=== PATIENT | female | born 1935 | race Caucasian/White ===

== ENCOUNTER → 2016-11-24 | Outpatient (CLI) | payer MEDICARE, BC ==
[2016-11-24 13:24] LABS: CHLORIDE,CL 103 mmol/L (98-110); SODIUM,NA 138 mmol/L (136-146)
== END ==
LOC: MW.CHFP 12:21
PROVIDERS: ATTEND Nurse Practitioner Family
DX: I10 Essential (primary) hypertension (principal); N18.4 Chronic kidney disease, stage 4 (severe); F03.90 Unspecified dementia, unspecified severity, without behavioral disturbance, psychotic disturbance, mood disturbance, and anxiety; Z86.718 Personal history of other venous thrombosis and embolism
CPT/HCPCS: 36415; 80053; 80061; 99214

== ENCOUNTER 2018-06-17 23:27 | Observation (INO) | payer MEDICARE, BC ==
--- NOTE | 2018-06-17 23:51 | EDM.PDOC ---
ED HPI GENERAL MEDICAL PROBLEM - General Chief Complaint: Head Injury Stated Complaint: PT FELL AND HURT HEAD Time Seen by Provider: 06/17/18 23:47 - History of Present Illness INITIAL COMMENTS - FREE TEXT/NARRATIVE: HISTORY AND PHYSICAL: History of present illness: Patient is an 83-year-old white female presents status post fall which she hit her head on dresser she states she tripped over her own feet and it was dark in the room this was authenticated by her family was with her she had no loss consciousness she denies any neck pain she denies any chest pain dizziness palpitations shortness of breath or any other concerns she denies any other trauma and on arrival here apart from a small scalp hematoma in her left parietal region she is without complaints Review of systems: As per history of present illness and below otherwise all systems reviewed and negative. Past medical history: As per history of present illness and as reviewed below otherwise noncontributory. Surgical history: As per history of present illness and as reviewed below otherwise noncontributory. Social history: No reported history of drug or alcohol abuse. Family history: As per history of present illness and as reviewed below otherwise noncontributory. Physical exam: HEENT: Patient has a small approximately 1-2 cm scalp hematoma in the left parietal region no step-off no depression, normocephalic, pupils reactive, negative for conjunctival pallor or scleral icterus, mucous membranes moist, throat clear, neck supple, nontender, trachea midline. Lungs: Clear to auscultation, breath sounds equal bilaterally, chest nontender. Heart: S1S2, irregularly irregular tachycardic negative for clicks, rubs, or JVD. Abdomen: Soft, nondistended, nontender. Negative for masses or hepatosplenomegaly. Negative for costovertebral tenderness. Pelvis: Stable nontender. Genitourinary: Deferred. Rectal: Deferred. Extremities: Atraumatic, negative for cords or calf pain. Neurovascular unremarkable. Neuro: Awake, alert, oriented. Cranial nerves II through XII unremarkable. Cerebellum unremarkable. Motor and sensory unremarkable throughout. Exam nonfocal. Diagnostics: CBC CMP PT/INR troponin chest x-ray EKG CT brain Therapeutics: None Impression: #1 observation status post fall #2 head trauma with scalp hematoma #3 new onset atrial fibrillation with rapid ventricular response Definitive disposition and diagnosis as appropriate pending reevaluation and review of above. - Related Data Allergies Allergy/AdvReac Type Severity Reaction Status Date / Time No Known Allergies Allergy Verified 06/18/18 11:26 Home Meds: Home Meds Apixaban [Eliquis] 2.5 mg PO BID 06/17/18 [History] Potassium Chloride 10 meq PO TID 06/17/18 [History] Rosuvastatin [Crestor] 10 mg PO DAILY 06/17/18 [History] Triamterene/Hydrochlorothiazid [Triamterene-HCTZ 37.5-25 MG] 1 each PO DAILY [History] amLODIPine Besylate [Amlodipine Besylate] 10 mg PO DAILY 06/17/18 [History] Past Medical History Cardiovascular History: Reports: High Cholesterol, Hypertension Other Cardiovascular History: Pt states "she has hx of mitral valve problems but no replacement." [employer] History: Reports: Neurological History: Reports: Other (See Below) Other Neuro History: dementia Hematologic History: Reports: Other (See Below) Other Hematologic History: Hx of thrombosis Social & Family History - Family History Family Medical History: Noncontributory - Tobacco Use Smoking Status *Q: Never Smoker Second Hand Smoke Exposure: No - Caffeine Use Caffeine Use: Reports: Coffee - Recreational Drug Use Recreational Drug Use: No ED ROS GENERAL - Review of Systems Review Of Systems: ROS reveals no pertinent complaints other than HPI. ED EXAM, GENERAL - Physical Exam Exam: See Below (The dictation) Course - Vital Signs Last Recorded V/S: Last Vital Signs Temp 37.4 C 06/19/18 07:36 Pulse 110 H 06/19/18 07:36 Resp 16 06/19/18 07:36 BP 133/86 06/19/18 07:36 Pulse Ox 93 L 06/19/18 07:36 - Orders/Labs/Meds Orders: Active Orders 24 hr Category Date Time Status CULTURE URINE [RM] Stat Lab 06/18/18 07:14 Received Medication Orders Acetaminophen (Tylenol) 650 mg PO Q4H PRN PRN Reason: Pain (Mild 1-3)/fever Amlodipine Besylate (Norvasc) 10 mg PO DAILY [facility] Last Admin: 06/18/18 12:25 Dose: 10 mg Sodium Chloride (Normal Saline) 1,000 mls @ 100 mls/hr IV ASDIRECTED [facility] Last Admin: 06/18/18 23:26 Dose: 100 mls/hr Infusion: 06/18/18 22:24 Dose: 100 mls/hr Admin: 06/18/18 12:24 Dose: 100 mls/hr Ceftriaxone Sodium 1 gm/ (Sodium Chloride) 50 mls @ 100 mls/hr IV Q24H [facility] Last Admin: 06/18/18 12:24 Dose: 100 mls/hr Metoprolol Tartrate (Lopressor) 25 mg PO Q12H [facility] Last Admin: 06/18/18 23:22 Dose: 25 mg Admin: 06/18/18 12:25 Dose: 25 mg Ondansetron HCl (Zofran Odt) 4 mg PO Q4H PRN PRN Reason: nausea, able to take PO Potassium Chloride (Klor-Con M20) 40 meq PO ONETIME ONE Last Admin: 06/18/18 14:54 Dose: 40 meq Labs: Laboratory Tests 06/17/18 06/17/18 06/17/18 Range/Units 23:25 23:55 23:55 WBC 7.47 (4.0-11.0) K/uL RBC 5.42 (4.30-5.90) M/uL Hgb 15.5 (12.0-16.0) g/dL Hct 44.5 (36.0-46.0) % MCV 82.1 (80.0-98.0) fL MCH 28.6 (27.0-32.0) pg MCHC 34.8 (31.0-37.0) g/dL RDW Std Deviation 43.2 (28.0-62.0) fl RDW Coeff of Mary 15 (11.0-15.0) % Plt Count 188 (150-400) K/uL MPV 10.70 (7.40-12.00) fL Neut % (Auto) 57.0 (48.0-80.0) % Lymph % (Auto) 30.1 (16.0-40.0) % [place] % (Auto) 10.0 (0.0-15.0) % Eos % (Auto) 2.5 (0.0-7.0) % Baso % (Auto) 0.4 (0.0-1.5) % Neut # (Auto) 4.3 (1.4-5.7) K/uL Lymph # (Auto) 2.3 (0.6-2.4) K/uL Pitkin # (Auto) 0.8 (0.0-0.8) K/uL Eos # (Auto) 0.2 (0.0-0.7) K/uL Baso # (Auto) 0.0 (0.0-0.1) K/uL Nucleated RBC % 0.0 /100WBC Nucleated RBCs # 0 K/uL INR 0.98 Sodium (136-145) mmol/L Potassium (3.5-5.1) mmol/L Chloride (98-107) mmol/L Carbon Dioxide (21.0-32.0) mmol/L BUN (7.0-18.0) mg/dL Creatinine (0.6-1.0) mg/dL Est Cr Clr Drug Dosing mL/min Estimated GFR (MDRD) ml/min Glucose (74-106) mg/dL Calcium (8.5-10.1) mg/dL Total Bilirubin (0.2-1.0) mg/dL AST (15-37) IU/L ALT (14-63) IU/L Alkaline Phosphatase (46-116) U/L Troponin I (0.000-0.056) ng/mL Total Protein (6.4-8.2) g/dL Albumin (3.4-5.0) g/dL Globulin (2.0-3.5) g/dL Albumin/Globulin Ratio (1.3-2.8) Urine Color YELLOW Urine Appearance SLT CLOUDY Urine pH 6.0 (5.0-8.0) Ur Specific [place] >= 1.030 (1.001-1.035) Urine Protein 100 (NEGATIVE) mg/dL Urine Glucose (UA) NEGATIVE (NEGATIVE) mg/dL Urine Ketones NEGATIVE (NEGATIVE) mg/dL Urine Occult Blood SMALL H (NEGATIVE) Urine Nitrite POSITIVE H (NEGATIVE) Urine Bilirubin NEGATIVE (NEGATIVE) Urine Urobilinogen 0.2 (<2.0) EU/dL Ur Leukocyte Esterase NEGATIVE (NEGATIVE) Urine RBC 1-3 (0-2/HPF) Urine WBC 20-25 (0-5/HPF) Ur Epithelial Cells FEW (NONE-FEW) Urine Bacteria 2+ H (NEGATIVE) 06/17/18 Range/Units 23:55 WBC (4.0-11.0) K/uL RBC (4.30-5.90) M/uL Hgb (12.0-16.0) g/dL Hct (36.0-46.0) % MCV (80.0-98.0) fL MCH (27.0-32.0) pg MCHC (31.0-37.0) g/dL RDW Std Deviation (28.0-62.0) fl RDW Coeff of Mary (11.0-15.0) % Plt Count (150-400) K/uL MPV (7.40-12.00) fL Neut % (Auto) (48.0-80.0) % Lymph % (Auto) (16.0-40.0) % [place] % (Auto) (0.0-15.0) % Eos % (Auto) (0.0-7.0) % Baso % (Auto) (0.0-1.5) % Neut # (Auto) (1.4-5.7) K/uL Lymph # (Auto) (0.6-2.4) K/uL [place]kin # (Auto) (0.0-0.8) K/uL Eos # (Auto) (0.0-0.7) K/uL Baso # (Auto) (0.0-0.1) K/uL Nucleated RBC % /100WBC Nucleated RBCs # K/uL INR Sodium 138 (136-145) mmol/L Potassium 3.4 L (3.5-5.1) mmol/L Chloride 102 (98-107) mmol/L Carbon Dioxide 22.2 (21.0-32.0) mmol/L BUN 27 H (7.0-18.0) mg/dL Creatinine 1.8 H (0.6-1.0) mg/dL Est Cr Clr Drug Dosing 22.22 mL/min Estimated GFR (MDRD) 26.7 ml/min Glucose 129 H (74-106) mg/dL Calcium 9.6 (8.5-10.1) mg/dL Total Bilirubin 0.6 (0.2-1.0) mg/dL AST 19 (15-37) IU/L ALT 18 (14-63) IU/L Alkaline Phosphatase 82 (46-116) U/L Troponin I < 0.050 (0.000-0.056) ng/mL Total Protein 7.7 (6.4-8.2) g/dL Albumin 3.8 (3.4-5.0) g/dL Globulin 3.9 H (2.0-3.5) g/dL Albumin/Globulin Ratio 1.0 L (1.3-2.8) Urine Color Urine Appearance Urine pH (5.0-8.0) Ur Specific [place] (1.001-1.035) Urine Protein (NEGATIVE) mg/dL Urine Glucose (UA) (NEGATIVE) mg/dL Urine Ketones (NEGATIVE) mg/dL Urine Occult Blood (NEGATIVE) Urine Nitrite (NEGATIVE) Urine Bilirubin (NEGATIVE) Urine Urobilinogen (<2.0) EU/dL Ur Leukocyte Esterase (NEGATIVE) Urine RBC (0-2/HPF) Urine WBC (0-5/HPF) Ur Epithelial Cells (NONE-FEW) Urine Bacteria (NEGATIVE) Meds: Medications Generic Name Dose Route Start Last Admin Trade Name Freq PRN Reason Stop Dose Admin Acetaminophen 650 mg 06/18/18 11:51 Tylenol PO Q4H PRN Pain (Mild 1-3)/fever Amlodipine Besylate 10 mg 06/18/18 12:00 06/18/18 12:25 Norvasc PO 10 mg DAILY [facility] Administration Sodium Chloride 1,000 mls @ 100 mls/hr 06/18/18 12:00 06/18/18 23:26 Normal Saline IV 100 mls/hr ASDIRECTED ENRICO Administration Ceftriaxone Sodium 1 gm/ 50 mls @ 100 mls/hr 06/18/18 12:15 06/18/18 12:24 Sodium Chloride IV 100 mls/hr Q24H [facility] Administration Metoprolol Tartrate 25 mg 06/18/18 12:15 06/18/18 23:22 Lopressor PO 25 mg Q12H [facility] Administration Ondansetron HCl 4 mg 06/18/18 11:51 Zofran Odt PO Q4H PRN nausea, able to take PO Potassium Chloride 40 meq 06/18/18 13:18 06/18/18 14:54 Klor-Con M20 PO 40 meq ONETIME ONE Administration Discontinued Medications Generic Name Dose Route Start Last Admin Trade Name Freq PRN Reason Stop Dose Admin Diltiazem HCl 25 mg 06/18/18 01:37 06/18/18 01:57 Diltiazem IVPUSH 06/18/18 01:38 25 mg ONETIME ONE Administration Diltiazem HCl 20 mg 06/18/18 09:29 06/18/18 09:51 Diltiazem IVPUSH 06/18/18 09:30 20 mg ONETIME ONE Administration Sodium Chloride 1,000 mls @ 999 mls/hr 06/18/18 01:37 06/18/18 09:45 Normal Saline IV 06/18/18 02:37 Infused .Bolus ONE Infusion Ceftriaxone Sodium/Dextrose 1 50 mls @ 100 mls/hr 06/18/18 07:14 06/18/18 07: 31 gm/ Premix IV 06/18/18 07:43 100 mls/hr ONETIME ONE Administration Magnesium Sulfate 2 gm/ Premix 50 mls @ 50 mls/hr 06/18/18 19:57 06/18/18 20: 18 IV 06/18/18 20:56 50 mls/hr ONETIME ONE Administration Metoprolol Tartrate Confirm 06/18/18 12:16 06/18/18 12:30 Lopressor Administered 06/18/18 12:17 Not Given Dose 25 mg .ROUTE .STK-MED ONE Ondansetron HCl 8 mg 06/18/18 09:46 06/18/18 09:50 Zofran IVPUSH 06/18/18 09:47 8 mg ONETIME ONE Administration Ondansetron HCl Confirm 06/18/18 09:47 06/18/18 09:59 Zofran Administered 06/18/18 09:48 Not Given Dose 8 mg .ROUTE .STK-MED ONE Departure - Departure Time of Disposition: 08:13 Disposition: Refer to Observation Condition: Good Clinical Impression: Atrial fibrillation - Discharge Information - My Orders Last 24 Hours: My Active Orders 06/18/18 07:14 CULTURE URINE [RM] Stat - Assessment/Plan Last 24 Hours: My Active Orders 06/18/18 07:14 CULTURE URINE [RM] Stat
[2018-06-18 00:43] LABS: CHLORIDE,CL 102 mmol/L (98-107); SODIUM,NA 138 mmol/L (136-145)
[2018-06-18] MEDS ORDERED: Diltiazem 25 MG/5 ML SDV IVPUSH ONE ×2 (01:37→09:29)
[2018-06-18] MEDS ORDERED: Sodium Chloride 0.9% 1,000 ML IV ONE (01:37)
[2018-06-18] MEDS ORDERED: cefTRIAXone 1 GM in Premix Bag 1 BAG IV ONE (07:14)
[2018-06-18] MEDS ORDERED: Ondansetron 4 MG/2 ML SDV IVPUSH ONE (09:46)
[2018-06-18] MEDS ORDERED: Ondansetron 4 MG/2 ML SDV ONE (09:47)
--- NOTE | 2018-06-18 11:10 | CT ---
EXAM DATE: 06/18/18 PATIENT'S AGE: 83 Patient: MIGUELANGEL GONG Facility: [place], [place] Site . Site : 1935 Study: CT Head [id number]/24/2018 11:43:00 PM Ordering Physician: Doctor eHaly Final Report: INDICATION: Fall, On Blood Thinners, Head Trauma TECHNIQUE: CT Head without i.v. contrast. CONTRAST: None COMPARISON: 09/25/2015 FINDINGS: CSF space: Unremarkable for age. Brain: No evidence of mass, acute infarction or hemorrhage is seen. No mass- effect or midline shift is seen. Mild diffuse cortical atrophy is noted. The brain parenchyma is otherwise normal in appearance with preservation of the lagos -white matter junction. Calvarium: Partial opacification of the right sphenoind sinus noted. The visualized paranasal sinuses are otherwise well aerated. The mastoid air cells are clear. The visualized orbits are grossly unremarkable. The calvarium is unremarkable in appearance with no fractures identified. IMPRESSION: 1. No evidence of acute infarction, intracranial hemorrhage, or mass-effect seen. Please note that all CT scans at this facility use dose modulation, iterative reconstruction, and/or weight-based dosing when appropriate to reduce radiation dose to as low as reasonably achievable. Dictated by: Christian Gottlieb MD @ 06/17/2018 23:52:45 (Electronic Signature) Report Signed by Proxy. [facility]
--- NOTE | 2018-06-18 11:11 | CR ---
EXAM DATE: 06/18/18 PATIENT'S AGE: 83 Patient: MIGUELANGEL GONG Facility: [place], [place] Site . Site : 1935 Study: XRay Chest [id number]/24/2018 11:46:30 PM Ordering Physician: Doctor Healy Final Report: INDICATION: Fall, On Blood Thinners, chest injury TECHNIQUE: Chest radiograph 1 view COMPARISON: 09/25/2015 FINDINGS: Mediastinum: Large gastric hernia with air-fluid levels present without interval change. The heart silhouette is normal in size and morphology. Lung: Both lungs are unremarkable in appearance. The left lateral costophrenic sulcus is excluded. No pneumothorax is identified. Musculoskeletal: Unremarkable for age. IMPRESSION: 1. No acute cardiopulmonary disease is seen. Dictated by Christian Gottlieb MD @ 06/17/2018 11:54:29 PM Dictated by: Christian Gottlieb MD @ 06/17/2018 23:54:33 (Electronic Signature) Report Signed by Proxy. HUNG
[2018-06-18] MEDS ORDERED: Ondansetron 4 MG Tab.DIS PO PRN (11:51)
[2018-06-18] MEDS ORDERED: Acetaminophen 325 MG Tab PO PRN (11:51)
[2018-06-18] MEDS ORDERED: Metoprolol Tartrate 25 MG Tab ONE (12:16)
[2018-06-18] MEDS: cefTRIAXone 1 GM in Sodium Chloride 0.9% 50 ML IV SCH (12:24)
[2018-06-18] MEDS: Sodium Chloride 0.9% 1,000 ML IV SCH ×2 (12:24→23:26)
[2018-06-18] MEDS: Metoprolol Tartrate 25 MG Tab PO SCH ×2 (12:25→23:22)
[2018-06-18] MEDS: amLODIPine 5 MG Tab PO SCH (12:25)
--- NOTE | 2018-06-18 13:26 | PCM.HP ---
<Mookie QuirosandaGarrett - Last Filed: 06/18/18 13:21> H&P History of Present Illness - General Date of Service: 06/18/18 Admit Problem/Dx: Admission Diagnosis/Problem Admission Diagnosis/Problem Afib, Atrial fibrillation - History of Present Illness Initial Comments - Free Text/Narative: Tanya Lambert is an 83 y/o female with history of Afib on Eliquis who presented to the ER after she had a fall at home. History if obtained from her nephew and patient. Patient states that she was in room walking when she suddenly fell and hit her head on left side against a dresser. She denies any presyncopal symptoms. No history of seizures. In the ER, patient was found to be in Afib with RVR. She received diltiazem which seemed to control her heart rate. In addition, a Head CT was performed and it did not show any intracranial bleed. Patient states that she is able to take care of herself at home. Able to ambulate on her own. Denies any chest pain, dyspnea. No abdominal pain, dysuria or diarrhea. She is alert and oriented x3. Per family , she is at her baseline. Of note, UA performed is positive for UTI. ID and susceptibilities pending. - Related Data Allergies/Adverse Reactions: Allergies Allergy/AdvReac Type Severity Reaction Status Date / Time No Known Allergies Allergy Verified 06/18/18 11:26 Home Medications: Home Meds Apixaban [Eliquis] 2.5 mg PO BID 06/17/18 [History] Potassium Chloride 10 meq PO TID 06/17/18 [History] Rosuvastatin [Crestor] 10 mg PO DAILY 06/17/18 [History] Triamterene/Hydrochlorothiazid [Triamterene-HCTZ 37.5-25 MG] 1 each PO DAILY [History] amLODIPine Besylate [Amlodipine Besylate] 10 mg PO DAILY 06/17/18 [History] Past Medical History Cardiovascular History: Reports: High Cholesterol, Hypertension Other Cardiovascular History: Pt states "she has hx of mitral valve problems but no replacement." [employer] History: Reports: Neurological History: Reports: Other (See Below) Other Neuro History: dementia Hematologic History: Reports: Other (See Below) Other Hematologic History: Hx of thrombosis (R) arm Social & Family History - Family History Family Medical History: Noncontributory - Tobacco Use Smoking Status *Q: Never Smoker Second Hand Smoke Exposure: No - Caffeine Use Caffeine Use: Reports: Coffee - Recreational Drug Use Recreational Drug Use: No H&P Review of Systems - Review of Systems: Review Of Systems: ROS reveals no pertinent complaints other than HPI. Exam - Exam Exam: See Below - Vital Signs Vital Signs: Last Vital Signs Temp 36.6 C 06/18/18 11:22 Pulse 97 06/18/18 12:25 Resp 18 06/18/18 11:22 BP 134/74 06/18/18 12:25 Pulse Ox 98 06/18/18 11:51 Weight: 68.356 kg - Exam General: Alert, Oriented, Cooperative HEENT: Conjunctiva Clear, Mucosa Moist & [place], Posterior Pharynx Clear, Pupils Equal, Pupils Reactive Neck: Supple Lungs: Clear to Auscultation, Normal Respiratory Effort. No: Crackles, Wheezing Cardiovascular: Irregular Rhythm GI/Abdominal Exam: Normal Bowel Sounds, Soft, Non-Tender, No Distention (Female) Exam: Deferred Rectal (Female) Exam: Deferred Extremities: Normal Inspection, Normal Range of Motion, Non-Tender, No Pedal Edema Skin: Warm, Dry Neurological: Cranial Nerves Intact, Strength Equal Bilateral, Sensation Intact Neuro Extensive - Mental Status: Alert, Oriented x3 - Patient Data Lab Results Last 24 hrs: Laboratory Results - last 24 hr 06/17/18 06/17/18 06/17/18 Range/Units 23:25 23:55 23:55 WBC 7.47 (4.0-11.0) K/uL RBC 5.42 (4.30-5.90) M/uL Hgb 15.5 (12.0-16.0) g/dL Hct 44.5 (36.0-46.0) % MCV 82.1 (80.0-98.0) fL MCH 28.6 (27.0-32.0) pg MCHC 34.8 (31.0-37.0) g/dL RDW Std Deviation 43.2 (28.0-62.0) fl RDW Coeff of Mary 15 (11.0-15.0) % Plt Count 188 (150-400) K/uL MPV 10.70 (7.40-12.00) fL Neut % (Auto) 57.0 (48.0-80.0) % Lymph % (Auto) 30.1 (16.0-40.0) % [place] % (Auto) 10.0 (0.0-15.0) % Eos % (Auto) 2.5 (0.0-7.0) % Baso % (Auto) 0.4 (0.0-1.5) % Neut # (Auto) 4.3 (1.4-5.7) K/uL Lymph # (Auto) 2.3 (0.6-2.4) K/uL [place] # (Auto) 0.8 (0.0-0.8) K/uL Eos # (Auto) 0.2 (0.0-0.7) K/uL Baso # (Auto) 0.0 (0.0-0.1) K/uL Nucleated RBC % 0.0 /100WBC Nucleated RBCs # 0 K/uL INR 0.98 Sodium (136-145) mmol/L Potassium (3.5-5.1) mmol/L Chloride (98-107) mmol/L Carbon Dioxide (21.0-32.0) mmol/L BUN (7.0-18.0) mg/dL Creatinine (0.6-1.0) mg/dL Est Cr Clr Drug Dosing mL/min Estimated GFR (MDRD) ml/min Glucose (74-106) mg/dL Calcium (8.5-10.1) mg/dL Total Bilirubin (0.2-1.0) mg/dL AST (15-37) IU/L ALT (14-63) IU/L Alkaline Phosphatase (46-116) U/L Troponin I (0.000-0.056) ng/mL Total Protein (6.4-8.2) g/dL Albumin (3.4-5.0) g/dL Globulin (2.0-3.5) g/dL Albumin/Globulin Ratio (1.3-2.8) Urine Color YELLOW Urine Appearance SLT CLOUDY Urine pH 6.0 (5.0-8.0) Ur Specific [place] >= 1.030 (1.001-1.035) Urine Protein 100 (NEGATIVE) mg/dL Urine Glucose (UA) NEGATIVE (NEGATIVE) mg/dL Urine Ketones NEGATIVE (NEGATIVE) mg/dL Urine Occult Blood SMALL H (NEGATIVE) Urine Nitrite POSITIVE H (NEGATIVE) Urine Bilirubin NEGATIVE (NEGATIVE) Urine Urobilinogen 0.2 (<2.0) EU/dL Ur Leukocyte Esterase NEGATIVE (NEGATIVE) Urine RBC 1-3 (0-2/HPF) Urine WBC 20-25 (0-5/HPF) Ur Epithelial Cells FEW (NONE-FEW) Urine Bacteria 2+ H (NEGATIVE) 06/17/18 Range/Units 23:55 WBC (4.0-11.0) K/uL RBC (4.30-5.90) M/uL Hgb (12.0-16.0) g/dL Hct (36.0-46.0) % MCV (80.0-98.0) fL MCH (27.0-32.0) pg MCHC (31.0-37.0) g/dL RDW Std Deviation (28.0-62.0) fl RDW Coeff of Mary (11.0-15.0) % Plt Count (150-400) K/uL MPV (7.40-12.00) fL Neut % (Auto) (48.0-80.0) % Lymph % (Auto) (16.0-40.0) % [place] % (Auto) (0.0-15.0) % Eos % (Auto) (0.0-7.0) % Baso % (Auto) (0.0-1.5) % Neut # (Auto) (1.4-5.7) K/uL Lymph # (Auto) (0.6-2.4) K/uL [place] # (Auto) (0.0-0.8) K/uL Eos # (Auto) (0.0-0.7) K/uL Baso # (Auto) (0.0-0.1) K/uL Nucleated RBC % /100WBC Nucleated RBCs # K/uL INR Sodium 138 (136-145) mmol/L Potassium 3.4 L (3.5-5.1) mmol/L Chloride 102 (98-107) mmol/L Carbon Dioxide 22.2 (21.0-32.0) mmol/L BUN 27 H (7.0-18.0) mg/dL Creatinine 1.8 H (0.6-1.0) mg/dL Est Cr Clr Drug Dosing 22.22 mL/min Estimated GFR (MDRD) 26.7 ml/min Glucose 129 H (74-106) mg/dL Calcium 9.6 (8.5-10.1) mg/dL Total Bilirubin 0.6 (0.2-1.0) mg/dL AST 19 (15-37) IU/L ALT 18 (14-63) IU/L Alkaline Phosphatase 82 (46-116) U/L Troponin I < 0.050 (0.000-0.056) ng/mL Total Protein 7.7 (6.4-8.2) g/dL Albumin 3.8 (3.4-5.0) g/dL Globulin 3.9 H (2.0-3.5) g/dL Albumin/Globulin Ratio 1.0 L (1.3-2.8) Urine Color Urine Appearance Urine pH (5.0-8.0) Ur Specific [place] (1.001-1.035) Urine Protein (NEGATIVE) mg/dL Urine Glucose (UA) (NEGATIVE) mg/dL Urine Ketones (NEGATIVE) mg/dL Urine Occult Blood (NEGATIVE) Urine Nitrite (NEGATIVE) Urine Bilirubin (NEGATIVE) Urine Urobilinogen (<2.0) EU/dL Ur Leukocyte Esterase (NEGATIVE) Urine RBC (0-2/HPF) Urine WBC (0-5/HPF) Ur Epithelial Cells (NONE-FEW) Urine Bacteria (NEGATIVE) Result Diagrams: 06/17/18 23:55 06/17/18 23:55 Problem List Initiated/Reviewed/Updated: Yes Orders Last 24hrs: Active Orders 24 hr Category Date Time Status Admission Status [Patient Status] [ADT] Stat ADT 06/18/18 07:41 Active Patient Status [ADT] Routine ADT 06/18/18 11:51 Active Bedrest Bedside Commode [RC] ASDIRECTED Care 06/18/18 11:51 Active Cardiac Monitoring [RC] CONTINUOUS Care 06/18/18 11:56 Active Oxygen Therapy [RC] PRN Care 06/18/18 11:51 Active VTE/DVT Education [RC] PER UNIT ROUTINE Care 06/18/18 11:51 Active Vital Signs [RC] Q8HR Care 06/18/18 11:51 Active Regular Diet [DIET] Diet 06/18/18 Lunch Active CULTURE URINE [RM] Stat Lab 06/18/18 07:14 Received Acetaminophen [Tylenol] Med 06/18/18 11:51 Active 650 mg PO Q4H PRN Metoprolol Tartrate [Lopressor] Med 06/18/18 12:15 Active 25 mg PO Q12H Ondansetron [Zofran ODT] Med 06/18/18 11:51 Active 4 mg PO Q4H PRN Potassium Chloride Med 06/18/18 13:18 Once 40 meq PO ONETIME ONE Sodium Chloride 0.9% [Normal Saline] 1,000 ml Med 06/18/18 12:00 Active IV ASDIRECTED amLODIPine [Norvasc] Med 06/18/18 12:00 Active 10 mg PO DAILY cefTRIAXone [Rocephin] 1 gm Med 06/18/18 12:15 Active Sodium Chloride 0.9% [Normal Saline] 50 ml IV Q24H Sequential Compression Device [OM.PC] Per Unit Routine Oth 06/18/18 11:56 Ordered Resuscitation Status Routine Resus Stat 06/18/18 11:51 Ordered Medication Orders Acetaminophen (Tylenol) 650 mg PO Q4H PRN PRN Reason: Pain (Mild 1-3)/fever Amlodipine Besylate (Norvasc) 10 mg PO DAILY [facility] Last Admin: 06/18/18 12:25 Dose: 10 mg Sodium Chloride (Normal Saline) 1,000 mls @ 100 mls/hr IV ASDIRECTED [facility] Last Admin: 06/18/18 12:24 Dose: 100 mls/hr Ceftriaxone Sodium 1 gm/ (Sodium Chloride) 50 mls @ 100 mls/hr IV Q24H [facility] Last Admin: 06/18/18 12:24 Dose: 100 mls/hr Metoprolol Tartrate (Lopressor) 25 mg PO Q12H [facility] Last Admin: 06/18/18 12:25 Dose: 25 mg Ondansetron HCl (Zofran Odt) 4 mg PO Q4H PRN PRN Reason: nausea, able to take PO Potassium Chloride (Potassium Chloride) 40 meq PO ONETIME ONE Assessment/Plan Comment:: 1. Urinary tract infection. Pending ID and susceptibility. Started ceftriaxone. 2. Status post fall. No neurological deficits. Will continue to monitor. If new changes, will order MRI brain. Holding Eliquis due to recent fall. Will order PT /OT. 3. Acute kidney injury. Not sure if this is acute or chronic. Started NS 100 ml/ hr. Will monitor kidney function. If not improving, will order urine electrolytes. 4. Atrial fibrillation. Rate controlled. Started Metoprolol 25 mg PO BID for now. Holding Eliquis for now due to recent fall. May restart tomorrow. 5. Hypertension. Restarted her home dose of amlodipine. 5. Hypokalemia. Replaced with KCl 40 mEq PO once. Will recheck tomorrow. Disposition: 1-2 days. <Parmjit Chin - Last Filed: 06/18/18 17:09> H&P History of Present Illness - General Admit Problem/Dx: Admission Diagnosis/Problem Admission Diagnosis/Problem Afib, Atrial fibrillation Exam - Vital Signs Vital Signs: Last Vital Signs Temp 36.6 C 06/18/18 11:22 Pulse 97 06/18/18 12:25 Resp 18 06/18/18 11:22 BP 134/74 06/18/18 12:25 Pulse Ox 98 06/18/18 11:51 - Patient Data Lab Results Last 24 hrs: Laboratory Results - last 24 hr 06/17/18 06/17/18 06/17/18 Range/Units 23:25 23:55 23:55 WBC 7.47 (4.0-11.0) K/uL RBC 5.42 (4.30-5.90) M/uL Hgb 15.5 (12.0-16.0) g/dL Hct 44.5 (36.0-46.0) % MCV 82.1 (80.0-98.0) fL MCH 28.6 (27.0-32.0) pg MCHC 34.8 (31.0-37.0) g/dL RDW Std Deviation 43.2 (28.0-62.0) fl RDW Coeff of Mary 15 (11.0-15.0) % Plt Count 188 (150-400) K/uL MPV 10.70 (7.40-12.00) fL Neut % (Auto) 57.0 (48.0-80.0) % Lymph % (Auto) 30.1 (16.0-40.0) % [place] % (Auto) 10.0 (0.0-15.0) % Eos % (Auto) 2.5 (0.0-7.0) % Baso % (Auto) 0.4 (0.0-1.5) % Neut # (Auto) 4.3 (1.4-5.7) K/uL Lymph # (Auto) 2.3 (0.6-2.4) K/uL [place] # (Auto) 0.8 (0.0-0.8) K/uL Eos # (Auto) 0.2 (0.0-0.7) K/uL Baso # (Auto) 0.0 (0.0-0.1) K/uL Nucleated RBC % 0.0 /100WBC Nucleated RBCs # 0 K/uL INR 0.98 Sodium (136-145) mmol/L Potassium (3.5-5.1) mmol/L Chloride (98-107) mmol/L Carbon Dioxide (21.0-32.0) mmol/L BUN (7.0-18.0) mg/dL Creatinine (0.6-1.0) mg/dL Est Cr Clr Drug Dosing mL/min Estimated GFR (MDRD) ml/min Glucose (74-106) mg/dL Calcium (8.5-10.1) mg/dL Magnesium (1.8-2.4) mg/dL Total Bilirubin (0.2-1.0) mg/dL AST (15-37) IU/L ALT (14-63) IU/L Alkaline Phosphatase (46-116) U/L Troponin I (0.000-0.056) ng/mL Total Protein (6.4-8.2) g/dL Albumin (3.4-5.0) g/dL Globulin (2.0-3.5) g/dL Albumin/Globulin Ratio (1.3-2.8) Urine Color YELLOW Urine Appearance SLT CLOUDY Urine pH 6.0 (5.0-8.0) Ur Specific [place] >= 1.030 (1.001-1.035) Urine Protein 100 (NEGATIVE) mg/dL Urine Glucose (UA) NEGATIVE (NEGATIVE) mg/dL Urine Ketones NEGATIVE (NEGATIVE) mg/dL Urine Occult Blood SMALL H (NEGATIVE) Urine Nitrite POSITIVE H (NEGATIVE) Urine Bilirubin NEGATIVE (NEGATIVE) Urine Urobilinogen 0.2 (<2.0) EU/dL Ur Leukocyte Esterase NEGATIVE (NEGATIVE) Urine RBC 1-3 (0-2/HPF) Urine WBC 20-25 (0-5/HPF) Ur Epithelial Cells FEW (NONE-FEW) Urine Bacteria 2+ H (NEGATIVE) 06/17/18 06/18/18 Range/Units 23:55 14:30 WBC (4.0-11.0) K/uL RBC (4.30-5.90) M/uL Hgb (12.0-16.0) g/dL Hct (36.0-46.0) % MCV (80.0-98.0) fL MCH (27.0-32.0) pg MCHC (31.0-37.0) g/dL RDW Std Deviation (28.0-62.0) fl RDW Coeff of Mary (11.0-15.0) % Plt Count (150-400) K/uL MPV (7.40-12.00) fL Neut % (Auto) (48.0-80.0) % Lymph % (Auto) (16.0-40.0) % [place] % (Auto) (0.0-15.0) % Eos % (Auto) (0.0-7.0) % Baso % (Auto) (0.0-1.5) % Neut # (Auto) (1.4-5.7) K/uL Lymph # (Auto) (0.6-2.4) K/uL [place] # (Auto) (0.0-0.8) K/uL Eos # (Auto) (0.0-0.7) K/uL Baso # (Auto) (0.0-0.1) K/uL Nucleated RBC % /100WBC Nucleated RBCs # K/uL INR Sodium 138 (136-145) mmol/L Potassium 3.4 L (3.5-5.1) mmol/L Chloride 102 (98-107) mmol/L Carbon Dioxide 22.2 (21.0-32.0) mmol/L BUN 27 H (7.0-18.0) mg/dL Creatinine 1.8 H (0.6-1.0) mg/dL Est Cr Clr Drug Dosing 22.22 mL/min Estimated GFR (MDRD) 26.7 ml/min Glucose 129 H (74-106) mg/dL Calcium 9.6 (8.5-10.1) mg/dL Magnesium 1.8 (1.8-2.4) mg/dL Total Bilirubin 0.6 (0.2-1.0) mg/dL AST 19 (15-37) IU/L ALT 18 (14-63) IU/L Alkaline Phosphatase 82 (46-116) U/L Troponin I < 0.050 (0.000-0.056) ng/mL Total Protein 7.7 (6.4-8.2) g/dL Albumin 3.8 (3.4-5.0) g/dL Globulin 3.9 H (2.0-3.5) g/dL Albumin/Globulin Ratio 1.0 L (1.3-2.8) Urine Color Urine Appearance Urine pH (5.0-8.0) Ur Specific [place] (1.001-1.035) Urine Protein (NEGATIVE) mg/dL Urine Glucose (UA) (NEGATIVE) mg/dL Urine Ketones (NEGATIVE) mg/dL Urine Occult Blood (NEGATIVE) Urine Nitrite (NEGATIVE) Urine Bilirubin (NEGATIVE) Urine Urobilinogen (<2.0) EU/dL Ur Leukocyte Esterase (NEGATIVE) Urine RBC (0-2/HPF) Urine WBC (0-5/HPF) Ur Epithelial Cells (NONE-FEW) Urine Bacteria (NEGATIVE) Result Diagrams: 06/17/18 23:55 06/17/18 23:55 Orders Last 24hrs: Active Orders 24 hr Category Date Time Status Admission Status [Patient Status] [ADT] Stat ADT 06/18/18 07:41 Active Patient Status [ADT] Routine ADT 06/18/18 11:51 Active Bedrest Bedside Commode [RC] ASDIRECTED Care 06/18/18 11:51 Active Oxygen Therapy [RC] PRN Care 06/18/18 11:51 Active Telemetry Monitoring [Cardiac Monitoring] [RC] . Care 06/18/18 11:09 Active DIRECTED VTE/DVT Education [RC] PER UNIT ROUTINE Care 06/18/18 11:51 Active Vital Signs [RC] Q8HR Care 06/18/18 11:51 Active Consult to Physical Therapy [PT Evaluation and Cons 06/18/18 15:29 Active Treatment] [CONS] Routine Regular Diet [DIET] Diet 06/18/18 Lunch Active CBC WITH AUTO DIFF [HEME] AM Lab 06/19/18 05:11 Ordered COMPREHENSIVE METABOLIC PN,CMP [CHEM] AM Lab 06/19/18 05:11 Ordered CULTURE URINE [RM] Stat Lab 06/18/18 07:14 Received MAGNESIUM [CHEM] AM Lab 06/19/18 05:11 Ordered Acetaminophen [Tylenol] Med 06/18/18 11:51 Active 650 mg PO Q4H PRN Metoprolol Tartrate [Lopressor] Med 06/18/18 12:15 Active 25 mg PO Q12H Ondansetron [Zofran ODT] Med 06/18/18 11:51 Active 4 mg PO Q4H PRN Potassium Chloride [Klor-Con M20] Med 06/18/18 13:18 Once 40 meq PO ONETIME ONE Sodium Chloride 0.9% [Normal Saline] 1,000 ml Med 06/18/18 12:00 Active IV ASDIRECTED amLODIPine [Norvasc] Med 06/18/18 12:00 Active 10 mg PO DAILY cefTRIAXone [Rocephin] 1 gm Med 06/18/18 12:15 Active Sodium Chloride 0.9% [Normal Saline] 50 ml IV Q24H Sequential Compression Device [OM.PC] Per Unit Routine Oth 06/18/18 11:56 Ordered Resuscitation Status Routine Resus Stat 06/18/18 11:51 Ordered Medication Orders Acetaminophen (Tylenol) 650 mg PO Q4H PRN PRN Reason: Pain (Mild 1-3)/fever Amlodipine Besylate (Norvasc) 10 mg PO DAILY [facility] Last Admin: 06/18/18 12:25 Dose: 10 mg Sodium Chloride (Normal Saline) 1,000 mls @ 100 mls/hr IV ASDIRECTED [facility] Last Admin: 06/18/18 12:24 Dose: 100 mls/hr Ceftriaxone Sodium 1 gm/ (Sodium Chloride) 50 mls @ 100 mls/hr IV Q24H [facility] Last Admin: 06/18/18 12:24 Dose: 100 mls/hr Metoprolol Tartrate (Lopressor) 25 mg PO Q12H [facility] Last Admin: 06/18/18 12:25 Dose: 25 mg Ondansetron HCl (Zofran Odt) 4 mg PO Q4H PRN PRN Reason: nausea, able to take PO Potassium Chloride (Klor-Con M20) 40 meq PO ONETIME ONE Last Admin: 06/18/18 14:54 Dose: 40 meq Assessment/Plan Comment:: I seen and examined the patient independently of medical social worker. The patient was admitted to observation secondary to a fall at home. The patient does have chronic atrial fibrillation and has been taking Eliquis. The patient also has exhibited some confusion with no clear understanding of why she fell at home. The patient's grandson is with her and he says that she is having some difficulty with memory loss and possible early dementia. I agree with the medical residents assessment and plan of care. The patient should be appropriate for discharge once her atrial fibrillation has been controlled she will not require any further anticoagulation at this time. Please see orders.
[2018-06-18] MEDS: Potassium Chloride 20 MEQ Tab.ER PO ONE (14:54)
[2018-06-18] MEDS ORDERED: Magnesium Sulfate/Water 2 GM in Premix Bag 1 BAG IV ONE (19:57)
[2018-06-19] MEDS: amLODIPine 5 MG Tab PO SCH (08:46)
--- NOTE | 2018-06-19 09:28 | PCM.PN ---
<Mookie ChanGarrett - Last Filed: 06/19/18 11:18> - General Info Date of Service: 06/19/18 Subjective Update: Tanya Lambert is an 83 y/o female admitted for UTI and Afib with RVR. This morning the patient was alert and oriented to person, time. Per nursing staff, the patient was getting up from bed and pulled her IV. This morning, the patient was in her chair. Denies any headaches, change in vision. No chest pain , dyspnea. No dysuria. - Patient Data Vitals - Most Recent: Last Vital Signs Temp 37.4 C 06/19/18 07:36 Pulse 110 H 06/19/18 07:36 Resp 16 06/19/18 07:36 BP 127/69 06/19/18 08:46 Pulse Ox 93 L 06/19/18 07:36 Weight - Most Recent: 68.356 kg I&O - Last 24 Hours: Intake & Output 06/18/18 06/19/18 06/19/18 22:59 06:59 14:59 Intake Total 949 2002 Output Total 1000 Balance 949 1002 Lab Results Last 24 Hours: Laboratory Results - last 24 hr 06/18/18 06/19/18 06/19/18 Range/Units 14:30 04:55 04:55 WBC 8.48 (4.0-11.0) K/uL RBC 4.65 (4.30-5.90) M/uL Hgb 13.0 (12.0-16.0) g/dL Hct 38.7 (36.0-46.0) % MCV 83.2 (80.0-98.0) fL MCH 28.0 (27.0-32.0) pg MCHC 33.6 (31.0-37.0) g/dL RDW Std Deviation 45.0 (28.0-62.0) fl RDW Coeff of Mary 15 (11.0-15.0) % Plt Count 177 (150-400) K/uL MPV 10.60 (7.40-12.00) fL Neut % (Auto) 64.1 (48.0-80.0) % Lymph % (Auto) 24.2 (16.0-40.0) % [place] % (Auto) 9.2 (0.0-15.0) % Eos % (Auto) 2.1 (0.0-7.0) % Baso % (Auto) 0.4 (0.0-1.5) % Neut # (Auto) 5.4 (1.4-5.7) K/uL Lymph # (Auto) 2.1 (0.6-2.4) K/uL [place] # (Auto) 0.8 (0.0-0.8) K/uL Eos # (Auto) 0.2 (0.0-0.7) K/uL Baso # (Auto) 0.0 (0.0-0.1) K/uL Nucleated RBC % 0.0 /100WBC Nucleated RBCs # 0 K/uL Sodium 140 (136-145) mmol/L Potassium 3.7 (3.5-5.1) mmol/L Chloride 106 (98-107) mmol/L Carbon Dioxide 23.4 (21.0-32.0) mmol/L BUN 28 H (7.0-18.0) mg/dL Creatinine 1.5 H (0.6-1.0) mg/dL Est Cr Clr Drug Dosing 26.66 mL/min Estimated GFR (MDRD) 33.0 ml/min Glucose 115 H (74-106) mg/dL Calcium 8.6 (8.5-10.1) mg/dL Magnesium 1.8 2.3 (1.8-2.4) mg/dL Total Bilirubin 0.6 (0.2-1.0) mg/dL AST 24 (15-37) IU/L ALT 21 (14-63) IU/L Alkaline Phosphatase 63 (46-116) U/L Total Protein 6.4 (6.4-8.2) g/dL Albumin 3.2 L (3.4-5.0) g/dL Globulin 3.2 (2.0-3.5) g/dL Albumin/Globulin Ratio 1.0 L (1.3-2.8) Med Orders - Current: Current Medications Acetaminophen (Tylenol) 650 mg PO Q4H PRN PRN Reason: Pain (Mild 1-3)/fever Amlodipine Besylate (Norvasc) 10 mg PO DAILY [facility] Last Admin: 06/19/18 08:46 Dose: 10 mg Sodium Chloride (Normal Saline) 1,000 mls @ 100 mls/hr IV ASDIRECTED [facility] Last Admin: 06/18/18 23:26 Dose: 100 mls/hr Ceftriaxone Sodium 1 gm/ (Sodium Chloride) 50 mls @ 100 mls/hr IV Q24H [facility] Last Admin: 06/18/18 12:24 Dose: 100 mls/hr Metoprolol Tartrate (Lopressor) 25 mg PO Q12H [facility] Last Admin: 06/18/18 23:22 Dose: 25 mg Ondansetron HCl (Zofran Odt) 4 mg PO Q4H PRN PRN Reason: nausea, able to take PO Potassium Chloride (Klor-Con M20) 40 meq PO ONETIME ONE Last Admin: 06/18/18 14:54 Dose: 40 meq Discontinued Medications Diltiazem HCl (Diltiazem) 25 mg IVPUSH ONETIME ONE Stop: 06/18/18 01:38 Last Admin: 06/18/18 01:57 Dose: 25 mg Diltiazem HCl (Diltiazem) 20 mg IVPUSH ONETIME ONE Stop: 06/18/18 09:30 Last Admin: 06/18/18 09:51 Dose: 20 mg Sodium Chloride (Normal Saline) 1,000 mls @ 999 mls/hr IV .Bolus ONE Stop: 06/18/18 02:37 Last Infusion: 06/18/18 09:45 Dose: Infused Ceftriaxone Sodium/Dextrose 1 (gm/ Premix) 50 mls @ 100 mls/hr IV ONETIME ONE Stop: 06/18/18 07:43 Last Admin: 06/18/18 07:31 Dose: 100 mls/hr Magnesium Sulfate 2 gm/ Premix 50 mls @ 50 mls/hr IV ONETIME ONE Stop: 06/18/18 20:56 Last Admin: 06/18/18 20:18 Dose: 50 mls/hr Metoprolol Tartrate (Lopressor) Confirm Administered Dose 25 mg .ROUTE .STK-MED ONE Stop: 06/18/18 12:17 Last Admin: 06/18/18 12:30 Dose: Not Given Ondansetron HCl (Zofran) 8 mg IVPUSH ONETIME ONE Stop: 06/18/18 09:47 Last Admin: 06/18/18 09:50 Dose: 8 mg Ondansetron HCl (Zofran) Confirm Administered Dose 8 mg .ROUTE .STK-MED ONE Stop: 06/18/18 09:48 Last Admin: 06/18/18 09:59 Dose: Not Given - Exam General: Alert, Oriented, No Acute Distress HEENT: Pupils Equal, Pupils Reactive Lungs: Clear to Auscultation, Normal Respiratory Effort Cardiovascular: Irregular Rhythm GI/Abdominal Exam: Normal Bowel Sounds, Soft, Non-Tender Extremities: Normal Inspection, Non-Tender, No Pedal Edema Skin: Warm, Dry - Problem List Review Problem List Initiated/Reviewed/Updated: Yes - My Orders Last 24 Hours: My Active Orders 06/18/18 11:51 Patient Status [ADT] Routine Bedrest Bedside Commode [RC] ASDIRECTED Oxygen Therapy [RC] PRN VTE/DVT Education [RC] PER UNIT ROUTINE Vital Signs [RC] Q8HR Acetaminophen [Tylenol] 650 mg PO Q4H PRN Ondansetron [Zofran ODT] 4 mg PO Q4H PRN Resuscitation Status Routine 06/18/18 11:56 Sequential Compression Device [OM.PC] Per Unit Routine 06/18/18 12:00 Sodium Chloride 0.9% [Normal Saline] 1,000 ml IV ASDIRECTED amLODIPine [Norvasc] 10 mg PO DAILY 06/18/18 12:15 Metoprolol Tartrate [Lopressor] 25 mg PO Q12H cefTRIAXone [Rocephin] 1 gm Sodium Chloride 0.9% [Normal Saline] 50 ml IV Q24H 06/18/18 13:18 Potassium Chloride [Klor-Con M20] 40 meq PO ONETIME ONE 06/18/18 15:29 Consult to Physical Therapy [PT Evaluation and Treatment] [CONS] Routine 06/18/18 Lunch Regular Diet [DIET] - Assessment Assessment:: 1. Urinary tract infection. Continue with ceftriaxone for now. Pending ID and susceptibility. 2. Atrial fibrillation, rate controlled. I will resume the patient's anticoagulation today. Will increase metoprolol dose to 50 mg PO Q12H. 3. Acute kidney injury, improving. Will continue to monitor and continue with NS 100 ml/hr. 4. Hypokalemia, improving. Will order KCl 40 mEq PO once. Will recheck. 5. Hypertension. Will continue with amlodipine. Dispo; 1-2 days. <Parmjit Chin - Last Filed: 06/19/18 17:15> - General Info Admission Dx/Problem (Free Text): I have seen and examined the patient independently of medical office clerk. The patient had been admitted secondary to fall where she struck her head and did not realize that she had actually fallen. She was somewhat confused initially and this is improved somewhat. The patient was also noted to be in chronic atrial fibrillation and had episode of rapid ventricular response rate. Current antibiotics will be maintained. I have reviewed and agree with the medical residents assessment and plan of care. Please see orders. - Patient Data Vitals - Most Recent: Last Vital Signs Temp 36.9 C 06/19/18 16:00 Pulse 75 06/19/18 16:00 Resp 16 06/19/18 16:00 BP 127/58 L 06/19/18 16:00 Pulse Ox 93 L 06/19/18 16:00 I&O - Last 24 Hours: Intake & Output 06/19/18 06/19/18 06/19/18 06:59 14:59 22:59 Intake Total 2001 2239 Output Total 1000 350 Balance 1002 1889 Lab Results Last 24 Hours: Laboratory Results - last 24 hr 06/19/18 06/19/18 Range/Units 04:55 04:55 WBC 8.48 (4.0-11.0) K/uL RBC 4.65 (4.30-5.90) M/uL Hgb 13.0 (12.0-16.0) g/dL Hct 38.7 (36.0-46.0) % MCV 83.2 (80.0-98.0) fL MCH 28.0 (27.0-32.0) pg MCHC 33.6 (31.0-37.0) g/dL RDW Std Deviation 45.0 (28.0-62.0) fl RDW Coeff of Mary 15 (11.0-15.0) % Plt Count 177 (150-400) K/uL MPV 10.60 (7.40-12.00) fL Neut % (Auto) 64.1 (48.0-80.0) % Lymph % (Auto) 24.2 (16.0-40.0) % [place] % (Auto) 9.2 (0.0-15.0) % Eos % (Auto) 2.1 (0.0-7.0) % Baso % (Auto) 0.4 (0.0-1.5) % Neut # (Auto) 5.4 (1.4-5.7) K/uL Lymph # (Auto) 2.1 (0.6-2.4) K/uL [place] # (Auto) 0.8 (0.0-0.8) K/uL Eos # (Auto) 0.2 (0.0-0.7) K/uL Baso # (Auto) 0.0 (0.0-0.1) K/uL Nucleated RBC % 0.0 /100WBC Nucleated RBCs # 0 K/uL Sodium 140 (136-145) mmol/L Potassium 3.7 (3.5-5.1) mmol/L Chloride 106 (98-107) mmol/L Carbon Dioxide 23.4 (21.0-32.0) mmol/L BUN 28 H (7.0-18.0) mg/dL Creatinine 1.5 H (0.6-1.0) mg/dL Est Cr Clr Drug Dosing 26.66 mL/min Estimated GFR (MDRD) 33.0 ml/min Glucose 115 H (74-106) mg/dL Calcium 8.6 (8.5-10.1) mg/dL Magnesium 2.3 (1.8-2.4) mg/dL Total Bilirubin 0.6 (0.2-1.0) mg/dL AST 24 (15-37) IU/L ALT 21 (14-63) IU/L Alkaline Phosphatase 63 (46-116) U/L Total Protein 6.4 (6.4-8.2) g/dL Albumin 3.2 L (3.4-5.0) g/dL Globulin 3.2 (2.0-3.5) g/dL Albumin/Globulin Ratio 1.0 L (1.3-2.8) Med Orders - Current: Current Medications Acetaminophen (Tylenol) 650 mg PO Q4H PRN PRN Reason: Pain (Mild 1-3)/fever Amlodipine Besylate (Norvasc) 10 mg PO DAILY [facility] Last Admin: 06/19/18 08:46 Dose: 10 mg Apixaban (Eliquis) 2.5 mg PO BID [facility] Last Admin: 06/19/18 10:55 Dose: 2.5 mg Ceftriaxone Sodium 1 gm/ (Sodium Chloride) 50 mls @ 100 mls/hr IV Q24H [facility] Last Admin: 06/19/18 12:15 Dose: 100 mls/hr Metoprolol Tartrate (Lopressor) 50 mg PO Q12H [facility] Last Admin: 06/19/18 10:57 Dose: 50 mg Ondansetron HCl (Zofran Odt) 4 mg PO Q4H PRN PRN Reason: nausea, able to take PO Potassium Chloride (Klor-Con M20) 40 meq PO ONETIME ONE Last Admin: 06/19/18 10:56 Dose: 40 meq Discontinued Medications Diltiazem HCl (Diltiazem) 25 mg IVPUSH ONETIME ONE Stop: 06/18/18 01:38 Last Admin: 06/18/18 01:57 Dose: 25 mg Diltiazem HCl (Diltiazem) 20 mg IVPUSH ONETIME ONE Stop: 06/18/18 09:30 Last Admin: 06/18/18 09:51 Dose: 20 mg Sodium Chloride (Normal Saline) 1,000 mls @ 999 mls/hr IV .Bolus ONE Stop: 06/18/18 02:37 Last Infusion: 06/18/18 09:45 Dose: Infused Ceftriaxone Sodium/Dextrose 1 (gm/ Premix) 50 mls @ 100 mls/hr IV ONETIME ONE Stop: 06/18/18 07:43 Last Admin: 06/18/18 07:31 Dose: 100 mls/hr Sodium Chloride (Normal Saline) 1,000 mls @ 100 mls/hr IV ASDIRECTED [facility] Last Admin: 06/19/18 11:02 Dose: 100 mls/hr Magnesium Sulfate 2 gm/ Premix 50 mls @ 50 mls/hr IV ONETIME ONE Stop: 06/18/18 20:56 Last Admin: 06/18/18 20:18 Dose: 50 mls/hr Metoprolol Tartrate (Lopressor) 25 mg PO Q12H [facility] Last Admin: 06/18/18 23:22 Dose: 25 mg Metoprolol Tartrate (Lopressor) Confirm Administered Dose 25 mg .ROUTE .STK-MED ONE Stop: 06/18/18 12:17 Last Admin: 06/18/18 12:30 Dose: Not Given Ondansetron HCl (Zofran) 8 mg IVPUSH ONETIME ONE Stop: 06/18/18 09:47 Last Admin: 06/18/18 09:50 Dose: 8 mg Ondansetron HCl (Zofran) Confirm Administered Dose 8 mg .ROUTE .STK-MED ONE Stop: 06/18/18 09:48 Last Admin: 06/18/18 09:59 Dose: Not Given Potassium Chloride (Klor-Con M20) 40 meq PO ONETIME ONE Stop: 06/19/18 10:40 Last Admin: 06/19/18 11:00 Dose: 40 meq - My Orders Last 24 Hours: My Active Orders 06/18/18 19:57 Communication Order [RC] ROUTINE
[2018-06-19] MEDS ORDERED: Potassium Chloride 20 MEQ Tab.ER PO ONE (10:39)
[2018-06-19] MEDS: Apixaban 2.5 MG Tab PO SCH ×2 (10:55→22:25)
[2018-06-19] MEDS: Potassium Chloride 20 MEQ Tab.ER PO ONE (10:56)
[2018-06-19] MEDS: Metoprolol Tartrate 50 MG Tab PO SCH ×2 (10:57→22:25)
[2018-06-19] MEDS: Sodium Chloride 0.9% 1,000 ML IV SCH (11:02)
[2018-06-19] MEDS: cefTRIAXone 1 GM in Sodium Chloride 0.9% 50 ML IV SCH (12:15)
[2018-06-19] MEDS ORDERED: LORazepam 0.5 MG Tab PO ONE (23:19)
[2018-06-20] MEDS: amLODIPine 5 MG Tab PO SCH (08:52)
[2018-06-20] MEDS: Apixaban 2.5 MG Tab PO SCH (08:53)
[2018-06-20] MEDS: Metoprolol Tartrate 50 MG Tab PO SCH (10:14)
--- NOTE | 2018-06-20 10:42 | PCM.DCSUM1 ---
<Mookie RocioGarrett - Last Filed: 06/20/18 10:32> Discharge Summary - Hospital Course Free Text/Narrative:: Admission date:06/18/18 Discharge date:06/20/18 Admission diagnosis: 1. Urinary tract infection 2. Status post fall 3. Acute kidney injury 4. Atrial fibrillation 5. Hypokalemia 6. Hypertension Discharge diagnosis: 1. E.coli UTI 2. Atrial fibrillation, rate controlled 3. Acute kidney injury, resolved 4. Status post fall 5. Hypertension, controlled 6. Hypokalemia, replaced Procedures: none Consults: none Hospital course: Tanya Lambert is an 83 y/o female with a history of Afib on Eliquis who presented to the ER from home after she had a fall in her room. A CT head was negative for intracranial bleeding. Her Eliquis was held due to recent fall. It was later resumed during this hospitalization. She was found to have an E.coli UTI which was treated with ceftriaxone. Her mentation remained stable and back to baseline according to family members. She was discharged home on Bactrim DS for 5 days and metoprolol tartrate 25 mg PO BID. Follow-up: 1. Follow-up with your primary care provider in 1-2 weeks. - Discharge Data Discharge Date: 06/20/18 Discharge Disposition: Home, Self-Care 01 Condition: Fair - Patient Summary/Data Consults: Consultations 06/18/18 15:29 Consult to Physical Therapy [PT Evaluation and Treatment] [CONS] Routine - Patient Instructions Diet: Regular Diet as Tolerated Activity: As Tolerated - Discharge Plan *PRESCRIPTION DRUG MONITORING PROGRAM REVIEWED*: Not Applicable *COPY OF PRESCRIPTION DRUG MONITORING REPORT IN PATIENT TAMERA: Not Applicable Home Medications: Home Meds Apixaban [Eliquis] 2.5 mg PO BID 06/17/18 [History] Potassium Chloride 10 meq PO TID 06/17/18 [History] Rosuvastatin [Crestor] 10 mg PO DAILY 06/17/18 [History] Triamterene/Hydrochlorothiazid [Triamterene-HCTZ 37.5-25 MG] 1 each PO DAILY [History] amLODIPine Besylate [Amlodipine Besylate] 10 mg PO DAILY 06/17/18 [History] Patient Handouts: Metoprolol tablets, Sulfamethoxazole; Trimethoprim, SMX-TMP tablets, Atrial Fibrillation, [id number] - Discharge Summary/Plan Comment DC Time >30 min.: No - Patient Data Vitals - Most Recent: Last Vital Signs Temp 37.3 C 06/20/18 07:57 Pulse 74 06/20/18 10:14 Resp 18 06/20/18 07:57 BP 122/63 06/20/18 10:14 Pulse Ox 94 L 06/20/18 07:57 Weight - Most Recent: 68.356 kg I&O - Last 24 hours: Intake & Output 06/19/18 06/20/18 06/20/18 22:59 06:59 14:59 Intake Total 2239 500 Output Total 350 1100 Balance 1889 -600 Lab Results - Last 24 hrs: Laboratory Results - last 24 hr 06/20/18 Range/Units 05:00 Sodium 139 (136-145) mmol/L Potassium 4.0 (3.5-5.1) mmol/L Chloride 108 H (98-107) mmol/L Carbon Dioxide 21.5 (21.0-32.0) mmol/L BUN 29 H (7.0-18.0) mg/dL Creatinine 1.4 H (0.6-1.0) mg/dL Est Cr Clr Drug Dosing 28.57 mL/min Estimated GFR (MDRD) 35.7 ml/min Glucose 105 (74-106) mg/dL Calcium 8.6 (8.5-10.1) mg/dL Total Bilirubin 0.6 (0.2-1.0) mg/dL AST 30 (15-37) IU/L ALT 35 (14-63) IU/L Alkaline Phosphatase 58 (46-116) U/L Total Protein 6.2 L (6.4-8.2) g/dL Albumin 3.0 L (3.4-5.0) g/dL Globulin 3.2 (2.0-3.5) g/dL Albumin/Globulin Ratio 0.9 L (1.3-2.8) FREDY Results - Last 24 hrs: Microbiology 06/17/18 23:25 Urine Culture - Preliminary Urine, Clean Catch Escherichia Coli Med Orders - Current: Current Medications Acetaminophen (Tylenol) 650 mg PO Q4H PRN PRN Reason: Pain (Mild 1-3)/fever Amlodipine Besylate (Norvasc) 10 mg PO DAILY [facility] Last Admin: 06/20/18 08:52 Dose: 10 mg Apixaban (Eliquis) 2.5 mg PO BID [facility] Last Admin: 06/20/18 08:53 Dose: 2.5 mg Ceftriaxone Sodium 1 gm/ (Sodium Chloride) 50 mls @ 100 mls/hr IV Q24H [facility] Last Admin: 06/19/18 12:15 Dose: 100 mls/hr Metoprolol Tartrate (Lopressor) 50 mg PO Q12H [facility] Last Admin: 06/20/18 10:14 Dose: 50 mg Ondansetron HCl (Zofran Odt) 4 mg PO Q4H PRN PRN Reason: nausea, able to take PO Potassium Chloride (Klor-Con M20) 40 meq PO ONETIME ONE Last Admin: 06/19/18 10:56 Dose: 40 meq Discontinued Medications Diltiazem HCl (Diltiazem) 25 mg IVPUSH ONETIME ONE Stop: 06/18/18 01:38 Last Admin: 06/18/18 01:57 Dose: 25 mg Diltiazem HCl (Diltiazem) 20 mg IVPUSH ONETIME ONE Stop: 06/18/18 09:30 Last Admin: 06/18/18 09:51 Dose: 20 mg Sodium Chloride (Normal Saline) 1,000 mls @ 999 mls/hr IV .Bolus ONE Stop: 06/18/18 02:37 Last Infusion: 06/18/18 09:45 Dose: Infused Ceftriaxone Sodium/Dextrose 1 (gm/ Premix) 50 mls @ 100 mls/hr IV ONETIME ONE Stop: 06/18/18 07:43 Last Admin: 06/18/18 07:31 Dose: 100 mls/hr Sodium Chloride (Normal Saline) 1,000 mls @ 100 mls/hr IV ASDIRECTED [facility] Last Admin: 06/19/18 11:02 Dose: 100 mls/hr Magnesium Sulfate 2 gm/ Premix 50 mls @ 50 mls/hr IV ONETIME ONE Stop: 06/18/18 20:56 Last Admin: 06/18/18 20:18 Dose: 50 mls/hr Lorazepam (Ativan) 0.5 mg PO ONETIME ONE Stop: 06/19/18 23:20 Last Admin: 06/20/18 00:00 Dose: Not Given Metoprolol Tartrate (Lopressor) 25 mg PO Q12H [facility] Last Admin: 06/18/18 23:22 Dose: 25 mg Metoprolol Tartrate (Lopressor) Confirm Administered Dose 25 mg .ROUTE .STK-MED ONE Stop: 06/18/18 12:17 Last Admin: 06/18/18 12:30 Dose: Not Given Ondansetron HCl (Zofran) 8 mg IVPUSH ONETIME ONE Stop: 06/18/18 09:47 Last Admin: 06/18/18 09:50 Dose: 8 mg Ondansetron HCl (Zofran) Confirm Administered Dose 8 mg .ROUTE .STK-MED ONE Stop: 06/18/18 09:48 Last Admin: 06/18/18 09:59 Dose: Not Given Potassium Chloride (Klor-Con M20) 40 meq PO ONETIME ONE Stop: 06/19/18 10:40 Last Admin: 06/19/18 11:00 Dose: 40 meq <Parmjit Chin - Last Filed: 06/20/18 11:18> Discharge Summary - Hospital Course HPI Initial Comments: I have seen and examined the patient independently of medical claims specialist. The patient was admitted secondary to urinary tract infection, status post fall and acute kidney injury. The patient had been taking anticoagulants secondary to her atrial fibrillation and a CT scan showed that there was no signs of acute intracranial hemorrhage. The patient was noted to have urinary culture positive for Escherichia coli and her antibiotics were changed to Bactrim 1 by mouth twice a day. The patient was noted also to be in atrial fibrillation and she was rate controlled at time of discharge. The patient had been noted to be improving throughout her course of hospitalization. The patient was noted to be hemodynamically stable and she was subsequently discharged. I have reviewed and agree with the medical residents assessment and plan of care. - Patient Summary/Data Consults: Consultations 06/18/18 15:29 Consult to Physical Therapy [PT Evaluation and Treatment] [CONS] Routine - Patient Data Vitals - Most Recent: Last Vital Signs Temp 37.3 C 06/20/18 07:57 Pulse 74 06/20/18 10:14 Resp 18 06/20/18 07:57 BP 122/63 06/20/18 10:14 Pulse Ox 94 L 06/20/18 07:57 I&O - Last 24 hours: Intake & Output 06/19/18 06/20/18 06/20/18 22:59 06:59 14:59 Intake Total 2239 500 Output Total 350 1100 Balance 1889 -600 Lab Results - Last 24 hrs: Laboratory Results - last 24 hr 06/20/18 Range/Units 05:00 Sodium 139 (136-145) mmol/L Potassium 4.0 (3.5-5.1) mmol/L Chloride 108 H (98-107) mmol/L Carbon Dioxide 21.5 (21.0-32.0) mmol/L BUN 29 H (7.0-18.0) mg/dL Creatinine 1.4 H (0.6-1.0) mg/dL Est Cr Clr Drug Dosing 28.57 mL/min Estimated GFR (MDRD) 35.7 ml/min Glucose 105 (74-106) mg/dL Calcium 8.6 (8.5-10.1) mg/dL Total Bilirubin 0.6 (0.2-1.0) mg/dL AST 30 (15-37) IU/L ALT 35 (14-63) IU/L Alkaline Phosphatase 58 (46-116) U/L Total Protein 6.2 L (6.4-8.2) g/dL Albumin 3.0 L (3.4-5.0) g/dL Globulin 3.2 (2.0-3.5) g/dL Albumin/Globulin Ratio 0.9 L (1.3-2.8) FREDY Results - Last 24 hrs: Microbiology 06/17/18 23:25 Urine Culture - Preliminary Urine, Clean Catch Escherichia Coli Med Orders - Current: Current Medications Acetaminophen (Tylenol) 650 mg PO Q4H PRN PRN Reason: Pain (Mild 1-3)/fever Amlodipine Besylate (Norvasc) 10 mg PO DAILY [facility] Last Admin: 06/20/18 08:52 Dose: 10 mg Apixaban (Eliquis) 2.5 mg PO BID [facility] Last Admin: 06/20/18 08:53 Dose: 2.5 mg Ceftriaxone Sodium 1 gm/ (Sodium Chloride) 50 mls @ 100 mls/hr IV Q24H [facility] Last Admin: 06/19/18 12:15 Dose: 100 mls/hr Metoprolol Tartrate (Lopressor) 50 mg PO Q12H [facility] Last Admin: 06/20/18 10:14 Dose: 50 mg Ondansetron HCl (Zofran Odt) 4 mg PO Q4H PRN PRN Reason: nausea, able to take PO Potassium Chloride (Klor-Con M20) 40 meq PO ONETIME ONE Last Admin: 06/19/18 10:56 Dose: 40 meq Discontinued Medications Diltiazem HCl (Diltiazem) 25 mg IVPUSH ONETIME ONE Stop: 06/18/18 01:38 Last Admin: 06/18/18 01:57 Dose: 25 mg Diltiazem HCl (Diltiazem) 20 mg IVPUSH ONETIME ONE Stop: 06/18/18 09:30 Last Admin: 06/18/18 09:51 Dose: 20 mg Sodium Chloride (Normal Saline) 1,000 mls @ 999 mls/hr IV .Bolus ONE Stop: 06/18/18 02:37 Last Infusion: 06/18/18 09:45 Dose: Infused Ceftriaxone Sodium/Dextrose 1 (gm/ Premix) 50 mls @ 100 mls/hr IV ONETIME ONE Stop: 06/18/18 07:43 Last Admin: 06/18/18 07:31 Dose: 100 mls/hr Sodium Chloride (Normal Saline) 1,000 mls @ 100 mls/hr IV ASDIRECTED [facility] Last Admin: 06/19/18 11:02 Dose: 100 mls/hr Magnesium Sulfate 2 gm/ Premix 50 mls @ 50 mls/hr IV ONETIME ONE Stop: 06/18/18 20:56 Last Admin: 06/18/18 20:18 Dose: 50 mls/hr Lorazepam (Ativan) 0.5 mg PO ONETIME ONE Stop: 06/19/18 23:20 Last Admin: 06/20/18 00:00 Dose: Not Given Metoprolol Tartrate (Lopressor) 25 mg PO Q12H [facility] Last Admin: 06/18/18 23:22 Dose: 25 mg Metoprolol Tartrate (Lopressor) Confirm Administered Dose 25 mg .ROUTE .STK-MED ONE Stop: 06/18/18 12:17 Last Admin: 06/18/18 12:30 Dose: Not Given Ondansetron HCl (Zofran) 8 mg IVPUSH ONETIME ONE Stop: 06/18/18 09:47 Last Admin: 06/18/18 09:50 Dose: 8 mg Ondansetron HCl (Zofran) Confirm Administered Dose 8 mg .ROUTE .STK-MED ONE Stop: 06/18/18 09:48 Last Admin: 06/18/18 09:59 Dose: Not Given Potassium Chloride (Klor-Con M20) 40 meq PO ONETIME ONE Stop: 06/19/18 10:40 Last Admin: 06/19/18 11:00 Dose: 40 meq
[2018-06-20 11:42] VITALS: BP 110/69
== END 2018-06-20 13:30 | disposition home or self-care (01) ==
LOC: MW.ED 23:27 → MW.MS 06-18 07:41
PROVIDERS: ADMIT Internal Medicine; ATTEND Internal Medicine
DX: N39.0 Urinary tract infection, site not specified (principal); B96.20 Unspecified Escherichia coli [E. coli] as the cause of diseases classified elsewhere; I48.2 Chronic atrial fibrillation; I10 Essential (primary) hypertension; N17.9 Acute kidney failure, unspecified; E87.6 Hypokalemia; E78.00 Pure hypercholesterolemia, unspecified; Z79.01 Long term (current) use of anticoagulants; W19.XXXA Unspecified fall, initial encounter
CPT/HCPCS: 36415; 70450; 71045; 80053; 81001; 83735; 84484; 85025; 85610; 87086; 87186; 93005; 96361; 96365; 96366; 96375; 97161; 99285; A9270; G0378; J0696; J2405; J3475; J3490; J7040; J7050; 87088

== ENCOUNTER 2019-09-10 13:14 | Observation (INO) | payer MEDICARE, BC ==
--- NOTE | 2019-09-10 13:41 | EDM.PDOC ---
ED HPI GENERAL MEDICAL PROBLEM - General Chief Complaint: Neuro Symptoms/Deficits Stated Complaint: UN Time Seen by Provider: 09/10/19 13:27 Source of Information: Reports: Patient, EMS History Limitations: Reports: Altered Mental Status - History of Present Illness INITIAL COMMENTS - FREE TEXT/NARRATIVE: Patient is an 84-year-old female with past medical history of dementia and possible cardiac history presenting with complaint of being unresponsive while getting her hair done. Per EMS, patient had episode where she was apneic and unresponsive when they arrived. This lasted for a few seconds and resolve spontaneously. Per EMS, this happened 2 more times while patient was being evaluated and transported to the emergency department. Both times, the patient stopped breathing when apneic and was unresponsive. They noticed that she did have some left eye drooping but otherwise no neurologic deficits. Patient did not have any seizure-like activity. Both episodes were resolved spontaneously. Patient at this time has no complaints and states she feels well. She does not really remember what happened in the hair salon. She is denying chest pain , shortness of breath, blurry vision, headache, nausea, vomiting, abdominal pain. - Related Data Allergies Allergy/AdvReac Type Severity Reaction Status Date / Time No Known Allergies Allergy Verified 06/18/18 11:26 Home Meds: Home Meds Apixaban [Eliquis] 2.5 mg PO BID 06/17/18 [History] Potassium Chloride 10 meq PO TID 06/17/18 [History] Rosuvastatin [Crestor] 10 mg PO DAILY 06/17/18 [History] Triamterene/Hydrochlorothiazid [Triamterene-HCTZ 37.5-25 MG] 1 each PO DAILY [History] amLODIPine Besylate [Amlodipine Besylate] 10 mg PO DAILY 06/17/18 [History] Past Medical History Cardiovascular History: Reports: High Cholesterol, Hypertension Other Cardiovascular History: Pt states "she has hx of mitral valve problems but no replacement." [employer] [place] [employer] History: Reports: Neurological History: Reports: Other (See Below) Other Neuro History: dementia Hematologic History: Reports: Other (See Below) Other Hematologic History: Hx of thrombosis Social & Family History - Family History Family Medical History: Noncontributory - Caffeine Use Caffeine Use: Reports: Coffee ED ROS GENERAL - Review of Systems Review Of Systems: Comprehensive ROS is negative, except as noted in HPI. ED EXAM, GENERAL - Physical Exam Exam: See Below Exam Limited By: Altered Mental Status General Appearance: Alert, No Apparent Distress Eye Exam: Bilateral Eye: Normal Inspection, PERRL Nose: Normal Inspection Throat/Mouth: Normal Oropharynx, Normal Voice Head: Atraumatic, Normocephalic Neck: Normal Inspection, Supple Respiratory/Chest: No Respiratory Distress, Lungs Clear, Normal Breath Sounds Peripheral Pulses: 2+: Radial (L), Radial (R) GI/Abdominal: Soft, Non-Tender, No Organomegaly Extremities: Normal Inspection, Non-Tender, No Pedal Edema Neurological: Alert, CN II-XII Intact, No Motor/Sensory Deficits, Other (Alert and oriented x2) Psychiatric: Normal Affect, Normal Mood Skin Exam: Warm, Dry, Intact EKG INTERPRETATION EKG Date: 09/10/19 Time: 13:45 Rhythm: A-Fib Rate (Beats/Min): 121 [place]: Normal P-Wave: Absent QRS: Normal Comparison: NA - No Prior EKG EKG Interpretation Comments: abnormal EKG. afib with rvr Course - Vital Signs Last Recorded V/S: Last Vital Signs Temp 36.2 C 09/10/19 13:46 Pulse 85 09/10/19 14:02 Resp 16 09/10/19 14:02 BP 152/97 H 09/10/19 14:02 Pulse Ox 98 09/10/19 14:02 - Orders/Labs/Meds Orders: Active Orders 24 hr Category Date Time Status Admission Status [Patient Status] [ADT] Stat ADT 09/10/19 14:10 Active Blood Glucose Check, Bedside [RC] ONETIME Care 09/10/19 13:22 Active EKG Documentation Completion [RC] STAT Care 09/10/19 13:22 Active Labs: Laboratory Tests 09/10/19 09/10/19 09/10/19 Range/Units 13:16 13:16 13:16 WBC 9.30 (4.0-11.0) K/uL RBC 5.66 (4.30-5.90) M/uL Hgb 16.6 H (12.0-16.0) g/dL Hct 48.4 H (36.0-46.0) % MCV 85.5 (80.0-98.0) fL MCH 29.3 (27.0-32.0) pg MCHC 34.3 (31.0-37.0) g/dL RDW Std Deviation 44.9 (28.0-62.0) fl RDW Coeff of Mary 15 (11.0-15.0) % Plt Count 160 (150-400) K/uL MPV 10.60 (7.40-12.00) fL Neut % (Auto) 37.7 L (48.0-80.0) % Lymph % (Auto) 46.2 H (16.0-40.0) % [place] % (Auto) 11.1 (0.0-15.0) % Eos % (Auto) 4.5 (0.0-7.0) % Baso % (Auto) 0.5 (0.0-1.5) % Neut # (Auto) 3.5 (1.4-5.7) K/uL Lymph # (Auto) 4.3 H (0.6-2.4) K/uL [place] # (Auto) 1.0 H (0.0-0.8) K/uL Eos # (Auto) 0.4 (0.0-0.7) K/uL Baso # (Auto) 0.1 (0.0-0.1) K/uL Nucleated RBC % 0.0 /100WBC Nucleated RBCs # 0 K/uL INR 0.99 Sodium 140 (136-145) mmol/L Potassium 3.7 (3.5-5.1) mmol/L Chloride 102 (98-107) mmol/L Carbon Dioxide 24.7 (21.0-32.0) mmol/L BUN 23 H (7.0-18.0) mg/dL Creatinine 1.6 H (0.6-1.0) mg/dL Est Cr Clr Drug Dosing TNP Estimated GFR (MDRD) 30.6 ml/min Glucose 123 H (74-106) mg/dL Calcium 9.1 (8.5-10.1) mg/dL Total Bilirubin 1.2 H (0.2-1.0) mg/dL AST 20 (15-37) IU/L ALT 19 (14-63) IU/L Alkaline Phosphatase 85 (46-116) U/L Troponin I < 0.050 (0.000-0.056) ng/mL Total Protein 7.8 (6.4-8.2) g/dL Albumin 3.8 (3.4-5.0) g/dL Globulin 4.0 (2.6-4.0) g/dL Albumin/Globulin Ratio 0.9 (0.9-1.6) Urine Color Urine Appearance Urine pH (5.0-8.0) Ur Specific [place] (1.001-1.035) Urine Protein (NEGATIVE) mg/dL Urine Glucose (UA) (NEGATIVE) mg/dL Urine Ketones (NEGATIVE) mg/dL Urine Occult Blood (NEGATIVE) Urine Nitrite (NEGATIVE) Urine Bilirubin (NEGATIVE) Urine Urobilinogen (<2.0) EU/dL Ur Leukocyte Esterase (NEGATIVE) Urine RBC (0-2/HPF) Urine WBC (0-5/HPF) Ur Epithelial Cells (NONE-FEW) Urine Bacteria (NEGATIVE) Urine Mucus (NONE-MOD) 09/10/19 Range/Units 13:38 WBC (4.0-11.0) K/uL RBC (4.30-5.90) M/uL Hgb (12.0-16.0) g/dL Hct (36.0-46.0) % MCV (80.0-98.0) fL MCH (27.0-32.0) pg MCHC (31.0-37.0) g/dL RDW Std Deviation (28.0-62.0) fl RDW Coeff of Mary (11.0-15.0) % Plt Count (150-400) K/uL MPV (7.40-12.00) fL Neut % (Auto) (48.0-80.0) % Lymph % (Auto) (16.0-40.0) % [place] % (Auto) (0.0-15.0) % Eos % (Auto) (0.0-7.0) % Baso % (Auto) (0.0-1.5) % Neut # (Auto) (1.4-5.7) K/uL Lymph # (Auto) (0.6-2.4) K/uL [place] # (Auto) (0.0-0.8) K/uL Eos # (Auto) (0.0-0.7) K/uL Baso # (Auto) (0.0-0.1) K/uL Nucleated RBC % /100WBC Nucleated RBCs # K/uL INR Sodium (136-145) mmol/L Potassium (3.5-5.1) mmol/L Chloride (98-107) mmol/L Carbon Dioxide (21.0-32.0) mmol/L BUN (7.0-18.0) mg/dL Creatinine (0.6-1.0) mg/dL Est Cr Clr Drug Dosing Estimated GFR (MDRD) ml/min Glucose (74-106) mg/dL Calcium (8.5-10.1) mg/dL Total Bilirubin (0.2-1.0) mg/dL AST (15-37) IU/L ALT (14-63) IU/L Alkaline Phosphatase (46-116) U/L Troponin I (0.000-0.056) ng/mL Total Protein (6.4-8.2) g/dL Albumin (3.4-5.0) g/dL Globulin (2.6-4.0) g/dL Albumin/Globulin Ratio (0.9-1.6) Urine Color YELLOW Urine Appearance CLEAR Urine pH 6.0 (5.0-8.0) Ur Specific [place] >= 1.030 (1.001-1.035) Urine Protein 30 H (NEGATIVE) mg/dL Urine Glucose (UA) NEGATIVE (NEGATIVE) mg/dL Urine Ketones NEGATIVE (NEGATIVE) mg/dL Urine Occult Blood TRACE-LYSED H (NEGATIVE) Urine Nitrite NEGATIVE (NEGATIVE) Urine Bilirubin NEGATIVE (NEGATIVE) Urine Urobilinogen 1.0 (<2.0) EU/dL Ur Leukocyte Esterase NEGATIVE (NEGATIVE) Urine RBC 0-4 (0-2/HPF) Urine WBC 3-6 (0-5/HPF) Ur Epithelial Cells OCCASIONAL (NONE-FEW) Urine Bacteria 1+ H (NEGATIVE) Urine Mucus LIGHT (NONE-MOD) Meds: Medications Discontinued Medications Generic Name Dose Route Start Last Admin Trade Name Freq PRN Reason Stop Dose Admin Diltiazem HCl 20 mg 09/10/19 13:54 09/10/19 14:00 Diltiazem IVPUSH 09/10/19 13:55 20 mg ONETIME ONE Administration Departure - Departure Time of Disposition: 14:16 Disposition: Admitted As Inpatient 64 Condition: Fair Clinical Impression: Syncope Referrals: Teresa Carlos MD [Primary Care Provider] - Forms: ED Department Discharge Sepsis Event Note - Focused Exam Vital Signs: Vital Signs Temp Pulse Resp BP Pulse Ox 09/10/19 14:02 85 16 152/97 H 98 09/10/19 13:55 124 H 16 161/102 H 97 09/10/19 13:46 36.2 C 115 H 16 153/121 H 96 09/10/19 13:39 106 H 16 153/121 H 98 09/10/19 13:28 88 17 149/96 H 94 L Date Exam was Performed: 09/10/19 Time Exam was Performed: 14:13 - My Orders Last 24 Hours: My Active Orders 09/10/19 13:22 Blood Glucose Check, Bedside [RC] ONETIME EKG Documentation Completion [RC] STAT 09/10/19 14:10 Admission Status [Patient Status] [ADT] Stat - Assessment/Plan Last 24 Hours: My Active Orders 09/10/19 13:22 Blood Glucose Check, Bedside [RC] ONETIME EKG Documentation Completion [RC] STAT 09/10/19 14:10 Admission Status [Patient Status] [ADT] Stat Assessment:: Patient is an 84-year-old female presenting status post syncopal episode x3. Although the patient was a stroke code by EMS, the patient does not have any neurologic deficits other than her baseline mental status of being alert and oriented x2. Therefore, the patient is not a TPA candidate as she also has a normal brain CT no evidence of hemorrhage. The patient's labs demonstrate elevated BUN/creatinine. The patient's EKG demonstrates A. fib with RVR which responded well to diltiazem in the emergency room. Patient's rate is now controlled. Patient's labs are otherwise unremarkable. Other differentials include seizure, vasovagal, acute cardiac event. Patient will be admitted to the medicine service for observation.
--- NOTE | 2019-09-10 13:49 | CR ---
Chest: Frontal view of the chest was obtained. Comparison: No prior chest x-ray is available, previous report of chest x-ray of 06/18/18 is available. Large hiatal hernia is seen. Hiatal hernia causes increased density within the right lung base. No acute parenchymal change is seen within either lung. Advanced degenerative change is noted within the left shoulder. Bony structures are slightly osteopenic. Heart does not appear enlarged. Tortuous thoracic aorta is seen. Impression: 1. Large hiatal hernia causing increased density within the right lung base. 2. Other findings as noted above. 3. Nothing acute is suspected. Diagnostic code #3 This report was dictated in [place] Standard Time
--- NOTE | 2019-09-10 13:51 | CT ---
INDICATION: Stroke code. COMPARISON: None available. TECHNIQUE: CT of the head without IV contrast. Coronal and sagittal reconstructions are provided. FINDINGS: No intracranial hemorrhage, mass effect, or evidence of acute infarct. No midline shift. No abnormal extra-axial fluid collections. Mild generalized cerebral and cerebellar volume loss. Normal caliber ventricular system. Physiologic basal ganglia calcifications. Orbits and extraocular muscles are symmetric. Near complete opacification of the right sphenoid sinus. The paranasal sinuses and mastoid air cells are otherwise clear. No acute fracture. Soft tissues are unremarkable. IMPRESSION: : No acute intracranial findings. Please note that all CT scans at this facility use dose modulation, iterative reconstruction, and/or weight-based dosing when appropriate to reduce radiation dose to as low as reasonably achievable. Dictated by Nicolette Shaw MD @ Sep 10 2019 1:44PM Signed by Dr. Nicolette Shaw @ Sep 10 2019 1:49PM
[2019-09-10] MEDS ORDERED: Diltiazem 25 MG/5 ML SDV IVPUSH ONE (13:54)
[2019-09-10 14:00] LABS: BLOOD UREA NITROGEN,BUN 23 mg/dL (7.0-18.0); CARBON DIOXIDE,CO2 24.7 mmol/L (21.0-32.0); CHLORIDE,CL 102 mmol/L (98-107); GLUCOSE RANDOM 123 mg/dL (74-106); POTASSIUM,K 3.7 mmol/L (3.5-5.1); SODIUM,NA 140 mmol/L (136-145)
[2019-09-10] MEDS ORDERED: Metoprolol Tartrate 25 MG Tab PO ONE (15:01)
--- NOTE | 2019-09-10 15:07 | PCM.HP.2 ---
H&P History of Present Illness - General Date of Service: 09/10/19 Admit Problem/Dx: Admission Diagnosis/Problem Admission Diagnosis/Problem Syncope Source of Information: Patient History Limitations: Reports: No Limitations - History of Present Illness Initial Comments - Free Text/Narative: This 84 year old female with pmh of chronic afib with anticoagulation on Eliquis , dementia and HTN presented via EMS with episode of syncope while getting her hair done. Grandhans was there, he is her caregiver, reports she was just sitting there and suddenly her head slumped and arms went limp. They tried to wake her up but couldnt. She suddenly woke up, EMS arrived and she proceeded to have two further episodes with apnea and hypoxia, then suddenly waking up again. No seizure activity and no pulselessness. She spontaneously woke up. Stroke code was called due to possible thoughts of L drooping on her eye, ER did not notice this and stroke was lower suspicion. In the ED EKG revealed Afib with RVR, she was given Diltiazem 20 mg IV which improved HR, controlled Afib. She is alert and oriented to self, which is her baseline per grandson. She denies fevers or chills, no chest pain or palpitations. She doesnt remember anything from the salon. She reports she has been feeling well the last few days , eating and drinking fine. No diarrhea or abdominal pain. No dysuria or urinary concerns. She denies URI symptoms. She is asking if she can go home. Discussed care with grandhans. He reports she has been at baseline lately with no medication changes. No falls at home. In the ED no leukocytosis noted, Hgb 16.6, which is slightly higher than baseline 14-15. BUN 23, Cr 1.6, which is near baseline as well. Bili 1.2. Head CT obtained which was negative. CXR negative, noted to have large R hiatal hernia. HR on arrival 120s, after Diltiazem, HR dropped to 80-90 remains afib. BP 150/80-90s. UA reveals +1 bacteria, WBC4-6, negative nitrite and neg leukocyte esterase. UC pending. She will be admitted for syncope, afib RVR. PCP Dr Carlos. - Related Data Allergies/Adverse Reactions: Allergies Allergy/AdvReac Type Severity Reaction Status Date / Time No Known Allergies Allergy Verified 06/18/18 11:26 Home Medications: Home Meds Apixaban [Eliquis] 2.5 mg PO BID 06/17/18 [History] Potassium Chloride 10 meq PO TID 06/17/18 [History] Rosuvastatin [Crestor] 10 mg PO BEDTIME 06/17/18 [History] amLODIPine Besylate [Amlodipine Besylate] 10 mg PO DAILY 06/17/18 [History] Latanoprost [Xalatan] 1 drop EYEBOTH BEDTIME 09/10/19 [History] Metoprolol Tartrate 25 mg PO BID 09/10/19 [History] Past Medical History Cardiovascular History: Reports: Afib, Blood Clots/VTE/DVT, High Cholesterol, Hypertension. Denies: CAD Other Cardiovascular History: Mitral valve prolapse Respiratory History: Reports: None. 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 Denies: Diabetes, Type II, Obesity/ BMI 30+ Hematologic History: Reports: Other (See Below) Other Hematologic History: Hx of thrombosis - Infectious Disease History Infectious Disease History: Reports: Chicken Pox - Past Surgical History HEENT Surgical History: Reports: Cataract Surgery Musculoskeletal Surgical History: Reports: Other (See Below) (hip repair) Social & Family History - Family History Family Medical History: Noncontributory - Tobacco Use Smoking Status *Q: Never Smoker - Caffeine Use Caffeine Use: Reports: Coffee - Recreational Drug Use Recreational Drug Use: No - Living Situation & Occupation Living situation: Reports: with Family (grandson cares for her) Occupation: Retired H&P Review of Systems - Review of Systems: Review Of Systems: See Below General: Reports: No Symptoms. Denies: Fever, Chills, Malaise Pulmonary: Reports: No Symptoms. Denies: Shortness of Breath Cardiovascular: Reports: Syncope. Denies: Chest Pain Gastrointestinal: Reports: No Symptoms. Denies: Abdominal Pain, Black Stool, Bloody Stool Genitourinary: Reports: No Symptoms. Denies: Dysuria, Frequency Musculoskeletal: Reports: No Symptoms. Denies: Neck Pain Skin: Denies: No Symptoms Psychiatric: Reports: No Symptoms. Denies: Confusion Neurological: Reports: No Symptoms. Denies: Confusion Hematologic/Lymphatic: Reports: No Symptoms. Denies: Anemia Immunologic: Reports: No Symptoms Exam - Exam Exam: See Below - Vital Signs Vital Signs: Last Vital Signs Temp 97.2 F 09/10/19 13:46 Pulse 107 H 09/10/19 14:32 Resp 16 09/10/19 14:32 BP 139/75 09/10/19 14:32 Pulse Ox 97 09/10/19 14:32 - Exam General: Alert, Oriented, Cooperative HEENT: Conjunctiva Clear, Pupils Reactive Neck: Supple, Trachea Midline Lungs: Clear to Auscultation, Normal Respiratory Effort Cardiovascular: Regular Rate, Irregular Rhythm, Systolic Murmur GI/Abdominal Exam: Normal Bowel Sounds, Soft, Non-Tender Extremities: Normal Inspection, Normal Range of Motion, Non-Tender, No Pedal Edema Neuro Extensive - Mental Status: Alert. No: Oriented x3 (x1-2 but this is baseline per grandson.) Neuro Extensive - Motor, Sensory, Reflexes: CN II-XII Intact Psychiatric: Alert, Normal Affect, Normal Mood - Patient Data Lab Results Last 24 hrs: Laboratory Results - last 24 hr 09/10/19 09/10/19 09/10/19 Range/Units 13:16 13:16 13:16 WBC 9.30 (4.0-11.0) K/uL RBC 5.66 (4.30-5.90) M/uL Hgb 16.6 H (12.0-16.0) g/dL Hct 48.4 H (36.0-46.0) % MCV 85.5 (80.0-98.0) fL MCH 29.3 (27.0-32.0) pg MCHC 34.3 (31.0-37.0) g/dL RDW Std Deviation 44.9 (28.0-62.0) fl RDW Coeff of Mary 15 (11.0-15.0) % Plt Count 160 (150-400) K/uL MPV 10.60 (7.40-12.00) fL Neut % (Auto) 37.7 L (48.0-80.0) % Lymph % (Auto) 46.2 H (16.0-40.0) % [place] % (Auto) 11.1 (0.0-15.0) % Eos % (Auto) 4.5 (0.0-7.0) % Baso % (Auto) 0.5 (0.0-1.5) % Neut # (Auto) 3.5 (1.4-5.7) K/uL Lymph # (Auto) 4.3 H (0.6-2.4) K/uL [place] # (Auto) 1.0 H (0.0-0.8) K/uL Eos # (Auto) 0.4 (0.0-0.7) K/uL Baso # (Auto) 0.1 (0.0-0.1) K/uL Nucleated RBC % 0.0 /100WBC Nucleated RBCs # 0 K/uL INR 0.99 Sodium 140 (136-145) mmol/L Potassium 3.7 (3.5-5.1) mmol/L Chloride 102 (98-107) mmol/L Carbon Dioxide 24.7 (21.0-32.0) mmol/L BUN 23 H (7.0-18.0) mg/dL Creatinine 1.6 H (0.6-1.0) mg/dL Est Cr Clr Drug Dosing TNP Estimated GFR (MDRD) 30.6 ml/min Glucose 123 H (74-106) mg/dL Calcium 9.1 (8.5-10.1) mg/dL Total Bilirubin 1.2 H (0.2-1.0) mg/dL AST 20 (15-37) IU/L ALT 19 (14-63) IU/L Alkaline Phosphatase 85 (46-116) U/L Troponin I < 0.050 (0.000-0.056) ng/mL Total Protein 7.8 (6.4-8.2) g/dL Albumin 3.8 (3.4-5.0) g/dL Globulin 4.0 (2.6-4.0) g/dL Albumin/Globulin Ratio 0.9 (0.9-1.6) Urine Color Urine Appearance Urine pH (5.0-8.0) Ur Specific [place] (1.001-1.035) Urine Protein (NEGATIVE) mg/dL Urine Glucose (UA) (NEGATIVE) mg/dL Urine Ketones (NEGATIVE) mg/dL Urine Occult Blood (NEGATIVE) Urine Nitrite (NEGATIVE) Urine Bilirubin (NEGATIVE) Urine Urobilinogen (<2.0) EU/dL Ur Leukocyte Esterase (NEGATIVE) Urine RBC (0-2/HPF) Urine WBC (0-5/HPF) Ur Epithelial Cells (NONE-FEW) Urine Bacteria (NEGATIVE) Urine Mucus (NONE-MOD) 09/10/19 Range/Units 13:38 WBC (4.0-11.0) K/uL RBC (4.30-5.90) M/uL Hgb (12.0-16.0) g/dL Hct (36.0-46.0) % MCV (80.0-98.0) fL MCH (27.0-32.0) pg MCHC (31.0-37.0) g/dL RDW Std Deviation (28.0-62.0) fl RDW Coeff of Mary (11.0-15.0) % Plt Count (150-400) K/uL MPV (7.40-12.00) fL Neut % (Auto) (48.0-80.0) % Lymph % (Auto) (16.0-40.0) % [place] % (Auto) (0.0-15.0) % Eos % (Auto) (0.0-7.0) % Baso % (Auto) (0.0-1.5) % Neut # (Auto) (1.4-5.7) K/uL Lymph # (Auto) (0.6-2.4) K/uL [place] # (Auto) (0.0-0.8) K/uL Eos # (Auto) (0.0-0.7) K/uL Baso # (Auto) (0.0-0.1) K/uL Nucleated RBC % /100WBC Nucleated RBCs # K/uL INR Sodium (136-145) mmol/L Potassium (3.5-5.1) mmol/L Chloride (98-107) mmol/L Carbon Dioxide (21.0-32.0) mmol/L BUN (7.0-18.0) mg/dL Creatinine (0.6-1.0) mg/dL Est Cr Clr Drug Dosing Estimated GFR (MDRD) ml/min Glucose (74-106) mg/dL Calcium (8.5-10.1) mg/dL Total Bilirubin (0.2-1.0) mg/dL AST (15-37) IU/L ALT (14-63) IU/L Alkaline Phosphatase (46-116) U/L Troponin I (0.000-0.056) ng/mL Total Protein (6.4-8.2) g/dL Albumin (3.4-5.0) g/dL Globulin (2.6-4.0) g/dL Albumin/Globulin Ratio (0.9-1.6) Urine Color YELLOW Urine Appearance CLEAR Urine pH 6.0 (5.0-8.0) Ur Specific [place] >= 1.030 (1.001-1.035) Urine Protein 30 H (NEGATIVE) mg/dL Urine Glucose (UA) NEGATIVE (NEGATIVE) mg/dL Urine Ketones NEGATIVE (NEGATIVE) mg/dL Urine Occult Blood TRACE-LYSED H (NEGATIVE) Urine Nitrite NEGATIVE (NEGATIVE) Urine Bilirubin NEGATIVE (NEGATIVE) Urine Urobilinogen 1.0 (<2.0) EU/dL Ur Leukocyte Esterase NEGATIVE (NEGATIVE) Urine RBC 0-4 (0-2/HPF) Urine WBC 3-6 (0-5/HPF) Ur Epithelial Cells OCCASIONAL (NONE-FEW) Urine Bacteria 1+ H (NEGATIVE) Urine Mucus LIGHT (NONE-MOD) Result Diagrams: 09/10/19 13:16 09/10/19 13:16 EKG INTERPRETATION Rhythm: A-Fib Rate (Beats/Min): 120 QRS: Normal ST-T: Normal QT: Normal Sepsis Event Note - Evaluation Sepsis Screening Result: No Definite Risk - Focused Exam Vital Signs: Vital Signs Temp Pulse Resp BP Pulse Ox 09/10/19 14:32 107 H 16 139/75 97 09/10/19 14:17 101 H 17 133/74 96 09/10/19 14:02 85 16 152/97 H 98 09/10/19 13:55 124 H 16 161/102 H 97 09/10/19 13:46 97.2 F 115 H 16 153/121 H 96 09/10/19 13:39 106 H 16 153/121 H 98 09/10/19 13:28 88 17 149/96 H 94 L Date Exam was Performed: 09/10/19 Time Exam was Performed: 15:40 - Problem List (1) Syncope SNOMED Code(s): 589947133 ICD Code: R55 - SYNCOPE AND COLLAPSE Status: Acute Current Visit: Yes (2) MVP (mitral valve prolapse) SNOMED Code(s): 573868935 ICD Code: I34.1 - NONRHEUMATIC MITRAL (VALVE) PROLAPSE Status: Chronic Current Visit: Yes (3) HTN (hypertension) SNOMED Code(s): 35548684 ICD Code: I10 - ESSENTIAL (PRIMARY) HYPERTENSION Status: Chronic Current Visit: Yes (4) Dementia SNOMED Code(s): 54023072 ICD Code: F03.90 - UNSPECIFIED DEMENTIA WITHOUT BEHAVIORAL DISTURBANCE Status: Chronic Current Visit: Yes (5) Atrial fibrillation SNOMED Code(s): 29026471 ICD Code: I48.91 - UNSPECIFIED ATRIAL FIBRILLATION Status: Chronic Current Visit: No Qualifiers: Atrial fibrillation type: longstanding persistent Qualified Code(s): I48.11 - Longstanding persistent atrial fibrillation Problem List Initiated/Reviewed/Updated: Yes Orders Last 24hrs: Active Orders 24 hr Category Date Time Status Admission Status [Patient Status] [ADT] Stat ADT 09/10/19 14:17 Active Blood Glucose Check, Bedside [RC] ONETIME Care 09/10/19 13:22 Active EKG Documentation Completion [RC] STAT Care 09/10/19 13:22 Active Telemetry Monitoring [Cardiac Monitoring] [RC] . Care 09/10/19 14:53 Active DIRECTED Echo Comp wo Cont [US] Urgent Exams 09/10/19 14:51 Ordered Assessment/Plan Comment:: This 84 year old female admitted with syncope and Afib with RVR 1. Syncope: Unsure of cause, will monitor on telemetry for Afib RVR. Will obtain ECHO and carotid US to evaluate. May need ZIO patch on discharge to further evaluate. Arrange follow up with Cardiology as outpatient. 2. Afib RVR: Give potassium po and check Mag. Supplement as needed. Increase Metoprolol to 50 mg BID and monitor. Continue Eliquis. 3. Dementia: At baseline, will monitor. VTE prophylaxis: Eliquis. Dispo: 1-2 days - Mortality Measure Prognosis:: Good
[2019-09-10] MEDS ORDERED: Ondansetron 4 MG/2 ML SDV IVPUSH PRN (16:05)
[2019-09-10] MEDS ORDERED: Sodium Chloride 0.9% 2.5 ML Syringe FLUSH PRN (16:05)
[2019-09-10] MEDS ORDERED: Docusate Sodium 100 MG Cap PO PRN (16:05)
[2019-09-10] MEDS ORDERED: Acetaminophen 325 MG Tab PO PRN (16:05)
[2019-09-10] MEDS ORDERED: Potassium Chloride 20 MEQ Tab.ER PO ONE (16:07)
[2019-09-10] MEDS ORDERED: Diltiazem 25 MG/5 ML SDV IVPUSH PRN (16:08)
[2019-09-10] MEDS ORDERED: Sodium Chloride 0.9% 1,000 ML IV SCH (16:15)
[2019-09-10] MEDS: Potassium Chloride 10 MEQ Tab.ER PO SCH (16:49)
[2019-09-10] MEDS ORDERED: Rosuvastatin 10 MG Tab PO SCH (21:00)
[2019-09-10] MEDS ORDERED: Latanoprost 0.005% Ophth Soln 2.5 ML Bottle EYEBOTH SCH (21:00)
[2019-09-10] MEDS: Apixaban 2.5 MG Tab PO SCH (21:45)
[2019-09-11 05:37] LABS: CARBON DIOXIDE,CO2 23.3 mmol/L (21.0-32.0); POTASSIUM,K 4.2 mmol/L (3.5-5.1)
[2019-09-11] MEDS ORDERED: Magnesium Sulfate/Water 2 GM in Premix Bag 1 BAG IV ONE (08:04)
[2019-09-11] MEDS ORDERED: Metoprolol Tartrate 50 MG Tab PO SCH (08:15)
[2019-09-11] MEDS ORDERED: amLODIPine 5 MG Tab PO SCH (09:00)
[2019-09-11] MEDS: Potassium Chloride 10 MEQ Tab.ER PO SCH ×2 (09:22→12:31)
[2019-09-11] MEDS: Apixaban 2.5 MG Tab PO SCH (09:22)
--- NOTE | 2019-09-11 10:47 | US ---
Carotid ultrasound: Duplex and color flow imaging was obtained of the carotid arteries. No previous carotid imaging. Scattered plaque noted on both sides. Plaque appears mild in amount and is mostly calcified. Right side: CCA has a peak systolic velocity of 0.85 m/sec. ICA has a peak systolic velocity of 0.51 m/sec and peak end-diastolic velocity of 0.16 m/sec. ECA has a peak systolic velocity of 0.74 m/sec. Vertebral artery has a peak systolic velocity of 0.58 m/sec. ICA/CCA ratio is 0.78. Left side: CCA has a peak systolic velocity of 0.53 m/sec. ICA has a peak systolic velocity of 0.62 m/sec and peak end-diastolic velocity of 0.18 m/sec. ECA has a peak systolic velocity of 1.19 m/sec. Vertebral artery has a peak systolic velocity of 0.51 m/sec. ICA/CCA ratio is 1.26. Impression: 1. Mild amount of scattered plaque. 2. Velocity measurements within both internal carotid arteries correspond to stenosis at the lower range of 1-49%. Diagnostic code #2 This report was dictated in [place] Standard Time
[2019-09-11 12:27] VITALS: BP 110/65; PULSE 73
--- NOTE | 2019-09-11 12:29 | PCM.DCSUM1 ---
Discharge Summary - Hospital Course Brief History: This 84 year old female with pmh of chronic afib with anticoagulation on Eliquis, dementia and HTN presented via EMS with episode of syncope while getting her hair done. Grandson was there, he is her caregiver, reports she was just sitting there and suddenly her head slumped and arms went limp. They tried to wake her up but couldnt. She suddenly woke up, EMS arrived and she proceeded to have two further episodes with apnea and hypoxia, then suddenly waking up again. No seizure activity and no pulselessness. She spontaneously woke up. Stroke code was called due to possible thoughts of L drooping on her eye, ER did not notice this and stroke was lower suspicion. In the ED EKG revealed Afib with RVR, she was given Diltiazem 20 mg IV which improved HR, controlled Afib. She is alert and oriented to self, which is her baseline per grandson. She denies fevers or chills, no chest pain or palpitations. She doesnt remember anything from the salon. She reports she has been feeling well the last few days, eating and drinking fine. No diarrhea or abdominal pain. No dysuria or urinary concerns. She denies URI symptoms. She is asking if she can go home. Discussed care with grandhans. He reports she has been at baseline lately with no medication changes. No falls at home. In the ED no leukocytosis noted, Hgb 16.6, which is slightly higher than baseline 14- 15. BUN 23, Cr 1.6, which is near baseline as well. Bili 1.2. Head CT obtained which was negative. CXR negative, noted to have large R hiatal hernia. HR on arrival 120s, after Diltiazem, HR dropped to 80-90 remains afib. BP 150/80-90s. UA reveals +1 bacteria, WBC4-6, negative nitrite and neg leukocyte esterase. UC pending. She will be admitted for syncope, afib RVR. Diagnosis: Stroke: No - Discharge Data Discharge Date: 09/11/19 Discharge Disposition: Home, Self-Care 01 Condition: Stable - Referral to Home Health Primary Care Physician: Teresa Carlos MD - Discharge Diagnosis/Problem(s) (1) Syncope SNOMED Code(s): 817063021 ICD Code: R55 - SYNCOPE AND COLLAPSE Status: Acute Current Visit: Yes (2) MVP (mitral valve prolapse) SNOMED Code(s): 649209636 ICD Code: I34.1 - NONRHEUMATIC MITRAL (VALVE) PROLAPSE Status: Chronic Current Visit: Yes (3) HTN (hypertension) SNOMED Code(s): 69304753 ICD Code: I10 - ESSENTIAL (PRIMARY) HYPERTENSION Status: Chronic Current Visit: Yes (4) Dementia SNOMED Code(s): 82494350 ICD Code: F03.90 - UNSPECIFIED DEMENTIA WITHOUT BEHAVIORAL DISTURBANCE Status: Chronic Current Visit: Yes (5) Atrial fibrillation SNOMED Code(s): 32183218 ICD Code: I48.91 - UNSPECIFIED ATRIAL FIBRILLATION Status: Chronic Current Visit: No Qualifiers: Atrial fibrillation type: longstanding persistent Qualified Code(s): I48.11 - Longstanding persistent atrial fibrillation - Patient Instructions Diet: Heart Healthy Diet Activity: No Strenuous Activities Driving: Do Not Drive Showering/Bathing: May Shower Notify Provider of: Fever, Increased Pain, Swelling and Redness, Drainage, Nausea and/or Vomiting - Discharge Plan *PRESCRIPTION DRUG MONITORING PROGRAM REVIEWED*: Not Applicable *COPY OF PRESCRIPTION DRUG MONITORING REPORT IN PATIENT TAMERA: Not Applicable Prescriptions/Med Rec: Metoprolol Tartrate 50 mg PO BID #60 tablet Home Medications: Home Meds Apixaban [Eliquis] 2.5 mg PO BID 06/17/18 [History] Potassium Chloride 10 meq PO TID 06/17/18 [History] Rosuvastatin [Crestor] 10 mg PO BEDTIME 06/17/18 [History] amLODIPine Besylate [Amlodipine Besylate] 10 mg PO DAILY 06/17/18 [History] Latanoprost [Xalatan] 1 drop EYEBOTH BEDTIME 09/10/19 [History] Metoprolol Tartrate 50 mg PO BID #60 tablet 09/11/19 [Rx] Oxygen Therapy Mode: Room Air Forms: ED Department Discharge Referrals: Teresa Carlos MD [Primary Care Provider] - - Discharge Summary/Plan Comment DC Time >30 min.: No Discharge Summary/Plan Comment: Admitting Diagnoses: Syncope Afib RVR Discharge Diagnoses: Syncope- resolved Afib RVR- resolved Other PMH MV prolapse Dementia Chronic anticoagulation Tanya was admitted and monitored after episodes of syncope. She was noted to be in Afib RVR ob arrival to ED. Diltiazem given, with improvement in rate. She remained in Afib. Metoprolol dose increased to 50 mg BID, she tolerated this well, with no hypotension or bradycardia. She remained afib but rate controlled during her stay. Syncope likely related to afib with RVR. She is doing well this morning, ECHO is pending on discharge. Carotid doppler obtained which showed 1-49% stenosis, on the lower end, in both internal carotids. She is to remain on statin and Eliqius. She is to follow up with PCP as scheduled. Grandson, caregiver, updated as well as sister and they feel she is at baseline and safe taking her home. She is to return to the ED or clinic if concerns should arise. - Patient Data Vitals - Most Recent: Last Vital Signs Temp 97.1 F 09/11/19 12:00 Pulse 73 09/11/19 12:00 Resp 18 09/11/19 12:00 BP 110/65 09/11/19 12:00 Pulse Ox 95 09/11/19 12:00 Weight - Most Recent: 63.9 kg I&O - Last 24 hours: Intake & Output 09/10/19 09/11/19 09/11/19 22:59 06:59 14:59 Intake Total 50 2060 Output Total 0 850 Balance 50 1210 Lab Results - Last 24 hrs: Laboratory Results - last 24 hr 09/10/19 09/10/19 09/10/19 Range/Units 13:16 13:16 13:16 WBC 9.30 (4.0-11.0) K/uL RBC 5.66 (4.30-5.90) M/uL Hgb 16.6 H (12.0-16.0) g/dL Hct 48.4 H (36.0-46.0) % MCV 85.5 (80.0-98.0) fL MCH 29.3 (27.0-32.0) pg MCHC 34.3 (31.0-37.0) g/dL RDW Std Deviation 44.9 (28.0-62.0) fl RDW Coeff of Mary 15 (11.0-15.0) % Plt Count 160 (150-400) K/uL MPV 10.60 (7.40-12.00) fL Neut % (Auto) 37.7 L (48.0-80.0) % Lymph % (Auto) 46.2 H (16.0-40.0) % Garland % (Auto) 11.1 (0.0-15.0) % Eos % (Auto) 4.5 (0.0-7.0) % Baso % (Auto) 0.5 (0.0-1.5) % Neut # (Auto) 3.5 (1.4-5.7) K/uL Lymph # (Auto) 4.3 H (0.6-2.4) K/uL Garland # (Auto) 1.0 H (0.0-0.8) K/uL Eos # (Auto) 0.4 (0.0-0.7) K/uL Baso # (Auto) 0.1 (0.0-0.1) K/uL Nucleated RBC % 0.0 /100WBC Nucleated RBCs # 0 K/uL INR 0.99 Sodium 140 (136-145) mmol/L Potassium 3.7 (3.5-5.1) mmol/L Chloride 102 (98-107) mmol/L Carbon Dioxide 24.7 (21.0-32.0) mmol/L BUN 23 H (7.0-18.0) mg/dL Creatinine 1.6 H (0.6-1.0) mg/dL Est Cr Clr Drug Dosing TNP Estimated GFR (MDRD) 30.6 ml/min Glucose 123 H (74-106) mg/dL Calcium 9.1 (8.5-10.1) mg/dL Magnesium (1.8-2.4) mg/dL Total Bilirubin 1.2 H (0.2-1.0) mg/dL AST 20 (15-37) IU/L ALT 19 (14-63) IU/L Alkaline Phosphatase 85 (46-116) U/L Troponin I < 0.050 (0.000-0.056) ng/mL Total Protein 7.8 (6.4-8.2) g/dL Albumin 3.8 (3.4-5.0) g/dL Globulin 4.0 (2.6-4.0) g/dL Albumin/Globulin Ratio 0.9 (0.9-1.6) Urine Color Urine Appearance Urine pH (5.0-8.0) Ur Specific Troy (1.001-1.035) Urine Protein (NEGATIVE) mg/dL Urine Glucose (UA) (NEGATIVE) mg/dL Urine Ketones (NEGATIVE) mg/dL Urine Occult Blood (NEGATIVE) Urine Nitrite (NEGATIVE) Urine Bilirubin (NEGATIVE) Urine Urobilinogen (<2.0) EU/dL Ur Leukocyte Esterase (NEGATIVE) Urine RBC (0-2/HPF) Urine WBC (0-5/HPF) Ur Epithelial Cells (NONE-FEW) Urine Bacteria (NEGATIVE) Urine Mucus (NONE-MOD) 09/10/19 09/11/19 09/11/19 Range/Units 13:38 05:00 05:00 WBC 7.38 (4.0-11.0) K/uL RBC 5.02 (4.30-5.90) M/uL Hgb 14.3 (12.0-16.0) g/dL Hct 41.9 (36.0-46.0) % MCV 83.5 (80.0-98.0) fL MCH 28.5 (27.0-32.0) pg MCHC 34.1 (31.0-37.0) g/dL RDW Std Deviation 42.9 (28.0-62.0) fl RDW Coeff of Mary 14 (11.0-15.0) % Plt Count 168 (150-400) K/uL MPV 10.00 (7.40-12.00) fL Neut % (Auto) 52.0 (48.0-80.0) % Lymph % (Auto) 30.5 (16.0-40.0) % Garland % (Auto) 13.8 (0.0-15.0) % Eos % (Auto) 3.4 (0.0-7.0) % Baso % (Auto) 0.3 (0.0-1.5) % Neut # (Auto) 3.8 (1.4-5.7) K/uL Lymph # (Auto) 2.3 (0.6-2.4) K/uL Garland # (Auto) 1.0 H (0.0-0.8) K/uL Eos # (Auto) 0.3 (0.0-0.7) K/uL Baso # (Auto) 0.0 (0.0-0.1) K/uL Nucleated RBC % /100WBC Nucleated RBCs # K/uL INR Sodium 140 (136-145) mmol/L Potassium 4.2 (3.5-5.1) mmol/L Chloride 107 (98-107) mmol/L Carbon Dioxide 23.3 (21.0-32.0) mmol/L BUN 25 H (7.0-18.0) mg/dL Creatinine 1.3 H (0.6-1.0) mg/dL Est Cr Clr Drug Dosing 30.21 Estimated GFR (MDRD) 38.8 ml/min Glucose 100 (74-106) mg/dL Calcium 8.9 (8.5-10.1) mg/dL Magnesium 1.7 L (1.8-2.4) mg/dL Total Bilirubin 0.9 (0.2-1.0) mg/dL AST 15 (15-37) IU/L ALT 17 (14-63) IU/L Alkaline Phosphatase 67 (46-116) U/L Troponin I (0.000-0.056) ng/mL Total Protein 6.9 (6.4-8.2) g/dL Albumin 3.3 L (3.4-5.0) g/dL Globulin 3.6 (2.6-4.0) g/dL Albumin/Globulin Ratio 0.9 (0.9-1.6) Urine Color YELLOW Urine Appearance CLEAR Urine pH 6.0 (5.0-8.0) Ur Specific [place] >= 1.030 (1.001-1.035) Urine Protein 30 H (NEGATIVE) mg/dL Urine Glucose (UA) NEGATIVE (NEGATIVE) mg/dL Urine Ketones NEGATIVE (NEGATIVE) mg/dL Urine Occult Blood TRACE-LYSED H (NEGATIVE) Urine Nitrite NEGATIVE (NEGATIVE) Urine Bilirubin NEGATIVE (NEGATIVE) Urine Urobilinogen 1.0 (<2.0) EU/dL Ur Leukocyte Esterase NEGATIVE (NEGATIVE) Urine RBC 0-4 (0-2/HPF) Urine WBC 3-6 (0-5/HPF) Ur Epithelial Cells OCCASIONAL (NONE-FEW) Urine Bacteria 1+ H (NEGATIVE) Urine Mucus LIGHT (NONE-MOD) Med Orders - Current: Current Medications Acetaminophen (Tylenol) 650 mg PO Q4H PRN PRN Reason: Pain (Mild 1-3)/fever Amlodipine Besylate (Norvasc) 10 mg PO DAILY [facility] Last Admin: 09/11/19 09:21 Dose: 10 mg Apixaban (Eliquis) 2.5 mg PO BID [facility] Last Admin: 09/11/19 09:22 Dose: 2.5 mg Diltiazem HCl (Diltiazem) 10 mg IVPUSH Q3H PRN PRN Reason: HR afib >120 sustained Docusate Sodium (Colace) 100 mg PO BID PRN PRN Reason: Constipation Latanoprost (Xalatan 0.005% Ophth Soln) 0 ml EYEBOTH BEDTIME [facility] Last Admin: 09/10/19 21:46 Dose: Not Given Metoprolol Tartrate (Lopressor) 50 mg PO Q12H [facility] Last Admin: 09/11/19 09:21 Dose: 50 mg Ondansetron HCl (Zofran) 4 mg IVPUSH Q4H PRN PRN Reason: Nausea Potassium Chloride (Klor-Con 10) 10 meq PO TIDMEALS [facility] Last Admin: 09/11/19 09:22 Dose: 10 meq Rosuvastatin Calcium (Crestor) 10 mg PO BEDTIME [facility] Last Admin: 09/10/19 21:45 Dose: 10 mg Sodium Chloride (Saline Flush) 2.5 ml FLUSH ASDIRECTED PRN PRN Reason: Keep Vein Open Discontinued Medications Diltiazem HCl (Diltiazem) 20 mg IVPUSH ONETIME ONE Stop: 09/10/19 13:55 Last Admin: 09/10/19 14:00 Dose: 20 mg Sodium Chloride (Normal Saline) 1,000 mls @ 75 mls/hr IV ASDIRECTED [facility] Stop: 09/11/19 05:34 Last Admin: 09/10/19 16:45 Dose: 75 mls/hr Magnesium Sulfate 2 gm/ Premix 50 mls @ 50 mls/hr IV ONETIME ONE Stop: 09/11/19 09:03 Last Admin: 09/11/19 09:25 Dose: 50 mls/hr Metoprolol Tartrate (Lopressor) 25 mg PO ONETIME ONE Stop: 09/10/19 15:02 Last Admin: 09/10/19 15:59 Dose: 25 mg Potassium Chloride (Klor-Con M20) 40 meq PO ONETIME ONE Stop: 09/10/19 16:08 Last Admin: 09/10/19 16:49 Dose: 40 meq
--- NOTE | 2019-09-15 16:29 | ECHO ---
The echocardiogram report can be seen in this patient's EMR (Electronic Medical Record) in the REPORTS section. The echocardiogram report has also been scanned into PACS and can be seen there as well. HUNG
== END 2019-09-11 16:00 | disposition home or self-care (01) ==
LOC: MW.ED 13:14 → MW.MS 14:17
PROVIDERS: ADMIT Student in an Organized Health Care Education/Training Program; ATTEND Student in an Organized Health Care Education/Training Program
DX: R55 Syncope and collapse (principal); I48.11 Longstanding persistent atrial fibrillation; I34.1 Nonrheumatic mitral (valve) prolapse; I10 Essential (primary) hypertension; F03.90 Unspecified dementia, unspecified severity, without behavioral disturbance, psychotic disturbance, mood disturbance, and anxiety; Z79.02 Long term (current) use of antithrombotics/antiplatelets; Z79.899 Other long term (current) drug therapy
CPT/HCPCS: 36415; 70450; 71045; 80053; 81001; 83735; 84484; 85025; 85610; 87086; 93005; 93306; 93880; 96374; 99285; A9270; J3475; J3490; J7030; 96361; 96365; 96375; G0378